=== PATIENT | female | born 1965 | race Caucasian/White ===

== ENCOUNTER 2017-07-28 13:09 | Emergency (ER) | payer OTHER ==
[~2017-07-28] VITALS: Ht 157.5 cm; Wt 86.4 kg
[2017-07-28] MEDS ORDERED: EFFE150C PO (13:18)
[2017-07-28] MEDS ORDERED: EFFE75CA75 PO (13:18)
--- NOTE | 2017-07-28 14:15 | REP ---
RIGHT HAND SERIES: Four views of the right hand performed. No acute fracture or dislocation is seen. Tiny radiodensities representing debris are seen in the soft tissues or on the skin anteriorly at the carpal level. Signed by Santos Mccray MD 07/28/2017 07:15 P
[2017-07-28] MEDS ORDERED: IBUPROFEN 600 MG TAB PO ONE (17:15)
[2017-07-28] MEDS ORDERED: ADACEL/BOOSTRIX VACCINE (DIPHTH/PERTUSS/ACELL/TETANUS)0.5ML SYR (90715) IM ONE (17:15)
[2017-07-28] MEDS ORDERED: CEPHALEXIN 500 MG CAP PO ONE (17:30)
[2017-07-28] MEDS ORDERED: KEFL500C17 PO (18:06)
[2017-07-28 18:33] VITALS: BP 138/87
== END 2017-07-28 18:37 | disposition home or self-care (01) ==
LOC: M ED 13:09
DX: S61.401A Unspecified open wound of right hand, initial encounter (principal); W19.XXXA Unspecified fall, initial encounter; Y92.89 Other specified places as the place of occurrence of the external cause; Y93.89 Activity, other specified; Y99.8 Other external cause status; F41.9 Anxiety disorder, unspecified; F33.9 Major depressive disorder, recurrent, unspecified; Z79.899 Other long term (current) drug therapy

== ENCOUNTER → 2018-06-02 | Outpatient (CLI) | payer OTHER ==
[2018-06-02 12:49] LABS: BASO # 0.1 10^3/uL (0.0-0.2); BASO % 0.8 % (0.0-1.0); EOS # 0.3 10^3/uL (0.0-0.50); EOS % 3.5 % (0.0-3.0); HEMATOCRIT 41.8 % (36.0-47.0); HEMOGLOBIN 13.6 g/dl (12.0-15.5); IMMATURE GRANULOCYTE % 0.1 % (0-3.0); LYMPH # 2.6 10^3/uL (1.5-4.5); LYMPH % 34.2 % (24.0-44.0); MEAN CORPUSCULAR HEMOGLOBIN 29.9 pg (27.0-33.0); MEAN CORPUSCULAR HGB CONC 32.5 g/dl (32.0-36.5); MEAN CORPUSCULAR VOLUME 91.9 fl (80.0-96.0); MONO # 0.5 10^3/uL (0.0-0.8); MONO % 6.1 % (0.0-5.0); NEUTROPHILS # 4.3 10^3/uL (1.8-7.7); NEUTROPHILS % 55.3 % (36.0-66.0); PLATELET COUNT, AUTOMATED 400 10^3/uL (150-450); RED BLOOD COUNT 4.55 10^6/uL (4.00-5.40); RED CELL DISTRIBUTION WIDTH 12.6 % (11.5-14.5); WHITE BLOOD COUNT 7.7 10^3/uL (4.0-10.0)
[2018-06-02 12:53] LABS: APPEARANCE, URINE CLEAR (CLEAR); BACTERIA, URINE AUTO NEGATIVE (NEGATIVE); BILIRUBIN, URINE AUTO NEGATIVE (NEGATIVE); BLOOD, URINE BLOOD NEGATIVE (NEGATIVE); COLOR, URINE STRAW (YELLOW); GLUCOSE, URINE (UA) AUTO NEGATIVE (NEGATIVE); KETONE, URINE AUTO NEGATIVE (NEGATIVE); LEUKOCYTE ESTERASE, URINE AUTO NEGATIVE (NEGATIVE); MUCUS, URINE SMALL (NEGATIVE); NITRITE, URINE AUTO NEGATIVE (NEGATIVE); PROTEIN, URINE AUTO NEGATIVE (NEGATIVE); RBC, URINE AUTO 1 /HPF (0-3); SPECIFIC GRAVITY URINE AUTO 1.006 (1.002-1.035); SQUAMOUS EPITHELIAL CELL UR AU 0 /HPF (0-6); UROBILINOGEN, URINE AUTO 0.2 mg/dL (0.0-2.0); WBC, URINE AUTO 2 /HPF (0-3)
[2018-06-02 13:32] LABS: ALBUMIN 3.7 GM/DL (3.2-5.2); ALBUMIN/GLOBULIN RATIO 1.03 (1.00-1.93); ALKALINE PHOSPHATASE 61 U/L (45-117); ALT/SGPT 24 U/L (12-78); ANION GAP 4 MEQ/L (8-16); AST/SGOT 13 U/L (7-37); BILIRUBIN,TOTAL 0.5 MG/DL (0.2-1.0); BLOOD UREA NITROGEN 14 MG/DL (7-18); CALCIUM LEVEL 8.8 MG/DL (8.5-10.1); CARBON DIOXIDE LEVEL 31 MEQ/L (21-32); CHLORIDE LEVEL 103 MEQ/L (98-107); CHOLESTEROL LEVEL 213 MG/DL (<200); CHOLESTEROL RISK RATIO 4.531 (<5); CREATININE FOR GFR 0.62 MG/DL (0.55-1.30); FREE T4 0.76 NG/DL (0.76-1.46); GLOMERULAR FILTRATION RATE > 60.0 (>51); GLUCOSE, FASTING 87 MG/DL (70-100); HDL CHOLESTEROL 47 MG/DL (>40); LDL CHOLESTEROL 135.4 MG/DL (<100); NON-HDL-C 166 MG/DL; POTASSIUM SERUM 4.1 MEQ/L (3.5-5.1); SODIUM LEVEL 138 MEQ/L (136-145); TOTAL PROTEIN 7.3 GM/DL (6.4-8.2); TRIGLYCERIDES LEVEL 153 MG/DL (<150)
[2018-06-06 14:28] LABS: VITAMIN D 1,25 DIHYDROXY 52.3 pg/mL (19.9-79.3)
== END ==
LOC: M LAB 12:12
DX: E78.5 Hyperlipidemia, unspecified (principal); R53.82 Chronic fatigue, unspecified
CPT/HCPCS: 84443

== ENCOUNTER → 2019-01-29 | Outpatient (CLI) | payer OTHER ==
[~2019-01-29] MED LIST: EFFE150C2 PO; EFFE75CA2 PO; KEFL500C17 PO
[2019-01-29 12:26] LABS: BLOOD UREA NITROGEN 20 MG/DL (7-18); CALCIUM LEVEL 8.7 MG/DL (8.5-10.1); CARBON DIOXIDE LEVEL 30 MEQ/L (21-32); CHLORIDE LEVEL 106 MEQ/L (98-107); CHOLESTEROL LEVEL 230 MG/DL (<200); CREATININE FOR GFR 0.61 MG/DL (0.55-1.30); GLOMERULAR FILTRATION RATE > 60.0 (>51); GLUCOSE, FASTING 91 MG/DL (70-100); HDL CHOLESTEROL 46 MG/DL (>40); LDL CHOLESTEROL 151 MG/DL (<100); NON-HDL-C 184 MG/DL; POTASSIUM SERUM 4.3 MEQ/L (3.5-5.1); SODIUM LEVEL 139 MEQ/L (136-145); TOTAL 25(OH) VITAMIN D 23.2 NG/ML (30.0-100.0); TRIGLYCERIDES LEVEL 166 MG/DL (<150)
== END ==
LOC: M LAB 11:08
PROVIDERS: ATTEND Physician Assistant
DX: E66.9 Obesity, unspecified (principal); E55.9 Vitamin D deficiency, unspecified; F43.23 Adjustment disorder with mixed anxiety and depressed mood

== ENCOUNTER → 2019-04-23 | Outpatient (CLI) | payer OTHER ==
[~2019-04-23] MED LIST changes: +E-Z-GAS II EFFERVESCENT PACKET (SODIUM BICARB./CITRIC ACID/SIMETHICONE) As Ordered ONE; +E-Z-HD 98% w/w 340GM SUSP BTL As Ordered ONE; +E-Z-PAQUE 96% w/w SUSP 176GM BTL As Ordered ONE
--- NOTE | 2019-04-24 16:43 | REP ---
Examination Requested: Esophagram Barium Swallow Reason For Exam/Comment: gastroesophageal reflux disease Esophagram: The procedure was performed TRISTEN Garcia, under the direct supervision of Dr. Piña. The images were reviewed with Dr. Piña. A single PA chest x-ray is submitted as a broadcaster film. The superior mediastinal structures are midline. The heart size is within normal limits. The lungs are clear. Liquid barium and gas producing granules were given in the erect position as well as liquid barium in the prone oblique position, in order to perform a double contrast esophagram examination. Oral and pharyngeal stages of the examination were unremarkable. Esophageal transport is efficient and there is no esophagitis, stricture, or mucosal ring noted. There is no hiatal hernia noted. Gastroesophageal reflux is not visualized throughout the course of the exam. Impression: 1. Unremarkable esophagram. 0.5 minutes of fluoroscopy time was utilized for this procedure. Some fluoroscopic images are performed with last image hold technology. These images require no additional radiation. Reviewed by TRISTEN Dow 04/23/2019 05:02 P Electronically Signed by Edgar Piña MD 04/24/2019 04:34 P
== END ==
LOC: M RAD 10:09
PROVIDERS: ATTEND Physician Assistant Medical
DX: K21.9 Gastro-esophageal reflux disease without esophagitis (principal); R13.10 Dysphagia, unspecified

== ENCOUNTER → 2019-04-23 | Outpatient (CLI) | payer OTHER ==
[~2019-04-23] MED LIST changes: -E-Z-GAS II EFFERVESCENT PACKET (SODIUM BICARB./CITRIC ACID/SIMETHICONE) As Ordered ONE; -E-Z-HD 98% w/w 340GM SUSP BTL As Ordered ONE; -E-Z-PAQUE 96% w/w SUSP 176GM BTL As Ordered ONE
--- NOTE | 2019-05-01 17:26 | REPMRS ---
Patient History The patient states she has not had a clinical breast exam in over a year. Family history of unknown cancer at age 50 or over in maternal aunt. Taking hormonal contraceptives for 5 years. Bilateral breast reduction 1998 Right breast bx 2000-benign The [facility] lifetime risk for breast cancer is 9.0%. Digital Mammo Screening Bilat: April 23, 2019 - Exam #: [id number] Bilateral CC and MLO view(s) were taken. Technologist: Opal Mejia Technologist FINDINGS: There are scattered fibroglandular densities. There has been no change in the appearance of the mammogram from the prior studies. There is a mild amount of residual fibroglandular tissue which is fairly symmetric. There is no interval development of dominant mass, architectural distortion, or clustered microcalcification suggestive of malignancy. Assessment: BI-RADS/ACR category 1 mammogram. Negative Mammogram. Recommendation Routine screening mammogram in 1 year (for women over age 40). This mammogram was interpreted with the aid of an FDA-approved computer-aided dectection system. Electronically Signed By: Santos Mccray MD 05/01/19 [id number]
== END ==
LOC: M RAD 11:18
PROVIDERS: ATTEND Physician Assistant
DX: Z12.31 Encounter for screening mammogram for malignant neoplasm of breast (principal); K21.9 Gastro-esophageal reflux disease without esophagitis; R13.10 Dysphagia, unspecified

== ENCOUNTER 2019-05-11 08:21 | Day surgery (SDC) | payer OTHER ==
[~2019-05-11] VITALS: Ht 157.5 cm; Wt 79.8 kg
[~2019-05-11 08:21] MED LIST changes: +CLOB05OI TOP; +LIDOCAINE 2% INJ 100 MG/5 ML SDV (FOR ANES.) As Ordered ONE; +MIRE1IUD IU; +PROPOFOL 200 MG/20 ML VIAL As Ordered ONE; +PROT0.1O EX
[2019-05-11] MEDS ORDERED: NS 1,000 ML IV ONE (09:00)
[2019-05-11] MEDS ORDERED: PROPOFOL 200 MG/20 ML VIAL As Ordered ONE (09:50)
--- NOTE | 2019-05-11 09:59 | ROOR ---
Patient Name: Nilam Garibay Procedure Date: 05/11/2019 9:14 AM Date of : 1965 Age: 53 Room: [facility] Gender: Female Note Status: Finalized Procedure: Upper GI endoscopy Indications: Dysphagia, Heartburn Providers: Aldo Darling MD Referring MD: Tawanna Campos MD Requesting Provider: Medicines: Monitored Anesthesia Care Complications: No immediate complications. Procedure: Pre-Anesthesia Assessment: - Prior to the procedure, a History and Physical was performed, and patient medications and allergies were reviewed. The patient is competent. The risks and benefits of the procedure and the sedation options and risks were discussed with the patient. All questions were answered and informed consent was obtained. Patient identification and proposed procedure were verified by the physician, the nurse and the anesthesiologist in the procedure room. Mental Status Examination: alert and oriented. Airway Examination: normal oropharyngeal airway and neck mobility. Respiratory Examination: clear to auscultation. CV Examination: normal. Prophylactic Antibiotics: The patient does not require prophylactic antibiotics. Prior Anticoagulants: The patient has taken no previous anticoagulant or antiplatelet agents. ASA Grade Assessment: II - A patient with mild systemic disease. After reviewing the risks and benefits, the patient was deemed in satisfactory condition to undergo the procedure. The anesthesia plan was to use monitored anesthesia care (MAC). Immediately prior to administration of medications, the patient was re-assessed for adequacy to receive sedatives. The heart rate, respiratory rate, oxygen saturations, blood pressure, adequacy of pulmonary ventilation, and response to care were monitored throughout the procedure. The physical status of the patient was re-assessed after the procedure. The Endoscope was introduced through the mouth, and advanced to the second part of duodenum. The upper GI endoscopy was accomplished without difficulty. The patient tolerated the procedure well. Findings: The Z-line was regular and was found in the distal esophagus. Biopsies were obtained from the proximal and distal esophagus with cold forceps for histology of suspected eosinophilic esophagitis. Verification of patient identification for the specimen was done by the physician and nurse using the patient's name, date and medical record number. Estimated blood loss was minimal. Patchy minimal inflammation characterized by erythema and granularity was found in the gastric antrum. Biopsies were taken with a cold forceps for Helicobacter pylori testing. The duodenal bulb and second portion of the duodenum were normal. Impression: - Z-line regular, in the distal esophagus. Biopsied. - Gastritis. Biopsied. - Normal duodenal bulb and second portion of the duodenum. Recommendation: - Patient has a contact number available for emergencies. The signs and symptoms of potential delayed complications were discussed with the patient. Return to normal activities tomorrow. Written discharge instructions were provided to the patient. - Resume previous diet. - Continue present medications. - Follow an antireflux regimen. - Await pathology results. - Telephone GI clinic for pathology results in 2 weeks. - Return to primary care physician. Aldo Darling MD Aldo Darling MD 05/11/2019 9:58:46 AM Electronically signed by Aldo Darling MD Number of Addenda: 0 Note Initiated On: 05/11/2019 9:14 AM Estimated Blood Loss: Estimated blood loss was minimal.
--- NOTE | 2019-05-11 10:04 | ROOR ---
Patient Name: Nilam Garibay Procedure Date: 05/11/2019 9:14 AM Date of : 1965 Age: 53 Room: [facility] Gender: Female Note Status: Finalized Procedure: Colonoscopy Indications: Screening for colorectal malignant neoplasm Providers: Aldo Darling MD Referring MD: Tawanna Campos MD Requesting Provider: Medicines: Monitored Anesthesia Care Complications: No immediate complications. Procedure: Pre-Anesthesia Assessment: - Prior to the procedure, a History and Physical was performed, and patient medications and allergies were reviewed. The patient is competent. The risks and benefits of the procedure and the sedation options and risks were discussed with the patient. All questions were answered and informed consent was obtained. Patient identification and proposed procedure were verified by the physician, the nurse and the anesthesiologist in the procedure room. Mental Status Examination: alert and oriented. Airway Examination: normal oropharyngeal airway and neck mobility. Respiratory Examination: clear to auscultation. CV Examination: normal. Prophylactic Antibiotics: The patient does not require prophylactic antibiotics. Prior Anticoagulants: The patient has taken no previous anticoagulant or antiplatelet agents. ASA Grade Assessment: II - A patient with mild systemic disease. After reviewing the risks and benefits, the patient was deemed in satisfactory condition to undergo the procedure. The anesthesia plan was to use monitored anesthesia care (MAC). Immediately prior to administration of medications, the patient was re-assessed for adequacy to receive sedatives. The heart rate, respiratory rate, oxygen saturations, blood pressure, adequacy of pulmonary ventilation, and response to care were monitored throughout the procedure. The physical status of the patient was re-assessed after the procedure. The Colonoscope was introduced through the anus and advanced to the terminal ileum, with identification of the appendiceal orifice and IC valve. The colonoscopy was performed without difficulty. The patient tolerated the procedure well. The quality of the bowel preparation was good. The terminal ileum, ileocecal valve, appendiceal orifice, and rectum were photographed. Scope insertion time was 3 minutes. Scope withdrawal time was 9 minutes. The total duration of the procedure was 12 minutes. Findings: The perianal and digital rectal examinations were normal. The terminal ileum appeared normal. A 3 mm polyp was found in the descending colon. The polyp was sessile. The polyp was removed with a cold biopsy forceps. Resection and retrieval were complete. Verification of patient identification for the specimen was done by the physician and nurse using the patient's name, date and medical record number. Estimated blood loss was minimal. A few small and large-mouthed diverticula were found in the sigmoid colon. There was no evidence of diverticular bleeding. Non-bleeding external and internal hemorrhoids were found during retroflexion. The hemorrhoids were medium-sized. Impression: - The examined portion of the ileum was normal. - One 3 mm polyp in the descending colon, removed with a cold biopsy forceps. Resected and retrieved. - Moderate diverticulosis in the sigmoid colon. There was no evidence of diverticular bleeding. - Non-bleeding external and internal hemorrhoids. Recommendation: - Patient has a contact number available for emergencies. The signs and symptoms of potential delayed complications were discussed with the patient. Return to normal activities tomorrow. Written discharge instructions were provided to the patient. - High fiber diet. - Continue present medications. - Await pathology results. - Repeat colonoscopy in 5-10 years for surveillance based on pathology results. - Telephone GI clinic for pathology results in 2 weeks. - Return to primary care physician. Aldo Darling MD Aldo Darling MD 05/11/2019 10:03:55 AM Electronically signed by Aldo Darling MD Number of Addenda: 0 Note Initiated On: 05/11/2019 9:14 AM Estimated Blood Loss: Estimated blood loss was minimal.
[2019-05-11 10:20] VITALS: BP 148/79
== END 2019-05-11 10:36 | disposition home or self-care (01) ==
LOC: M OPP 08:21
PROVIDERS: ATTEND Internal Medicine Gastroenterology
DX: Z12.11 Encounter for screening for malignant neoplasm of colon (principal); K64.8 Other hemorrhoids; D12.4 Benign neoplasm of descending colon; K57.30 Diverticulosis of large intestine without perforation or abscess without bleeding; K29.70 Gastritis, unspecified, without bleeding; R13.10 Dysphagia, unspecified; R12 Heartburn; Z79.899 Other long term (current) drug therapy; Z91.048 Other nonmedicinal substance allergy status

== ENCOUNTER → 2019-06-20 | Outpatient (REF) | payer OTHER ==
[~2019-06-20] MED LIST changes: -LIDOCAINE 2% INJ 100 MG/5 ML SDV (FOR ANES.) As Ordered ONE; -PROPOFOL 200 MG/20 ML VIAL As Ordered ONE
[2019-06-20 17:10] LABS: ALBUMIN 3.6 GM/DL (3.2-5.2); ALT/SGPT 22 U/L (12-78); BILIRUBIN,TOTAL 0.5 MG/DL (0.2-1.0); BLOOD UREA NITROGEN 19 MG/DL (7-18); CARBON DIOXIDE LEVEL 30 MEQ/L (21-32); CHLORIDE LEVEL 107 MEQ/L (98-107); CREATININE FOR GFR 0.67 MG/DL (0.55-1.30); GLOMERULAR FILTRATION RATE > 60.0 (>51); GLUCOSE, FASTING 80 MG/DL (70-100); POTASSIUM SERUM 4.5 MEQ/L (3.5-5.1); SODIUM LEVEL 142 MEQ/L (136-145); TOTAL PROTEIN 6.9 GM/DL (6.4-8.2)
[2019-06-20 17:17] LABS: BASO # 0.1 10^3/uL (0.0-0.2); BASO % 0.7 % (0.0-1.0); EOS # 0.2 10^3/uL (0.0-0.50); EOS % 3.2 % (0.0-3.0); HEMATOCRIT 42.1 % (36.0-47.0); HEMOGLOBIN 13.2 g/dl (12.0-15.5); LYMPH # 2.8 10^3/uL (1.5-4.5); LYMPH % 39.2 % (24.0-44.0); MEAN CORPUSCULAR HEMOGLOBIN 29.6 pg (27.0-33.0); MEAN CORPUSCULAR HGB CONC 31.4 g/dl (32.0-36.5); MEAN CORPUSCULAR VOLUME 94.4 fl (80.0-96.0); MONO # 0.4 10^3/uL (0.0-0.8); MONO % 6.1 % (0.0-5.0); NEUTROPHILS # 3.6 10^3/uL (1.8-7.7); NEUTROPHILS % 50.5 % (36.0-66.0); PLATELET COUNT, AUTOMATED 387 10^3/uL (150-450); RED BLOOD COUNT 4.46 10^6/uL (4.00-5.40); WHITE BLOOD COUNT 7.1 10^3/uL (4.0-10.0)
[2019-06-22 10:13] LABS: HEPATITIS B SURFACE ANTIGEN NEGATIVE (NEGATIVE)
[2019-06-22 10:39] LABS: HEPATITIS B CORE ANTIBODY IGM NEGATIVE (NEGATIVE)
[2019-06-22 10:42] LABS: HEPATITIS A ANTIBODY IGM NEGATIVE (NEGATIVE)
== END ==
LOC: M LABNEURO 13:30
PROVIDERS: ATTEND Nurse Practitioner Family
DX: L40.0 Psoriasis vulgaris (principal); M25.50 Pain in unspecified joint; L29.9 Pruritus, unspecified

== ENCOUNTER → 2020-06-23 | Outpatient (CLI) | payer OTHER ==
[2020-06-23 15:52] LABS: BASO # 0.1 10^3/uL (0.0-0.2); BASO % 0.8 % (0.0-1.0); EOS # 0.2 10^3/uL (0.0-0.5); EOS % 2.8 % (0.0-3.0); HEMATOCRIT 45.2 % (36.0-47.0); HEMOGLOBIN 14.3 g/dl (12.0-15.5); LYMPH # 2.8 10^3/uL (1.5-5.0); LYMPH % 35.8 % (24.0-44.0); MEAN CORPUSCULAR HEMOGLOBIN 29.7 pg (27.0-33.0); MEAN CORPUSCULAR HGB CONC 31.6 g/dl (32.0-36.5); MEAN CORPUSCULAR VOLUME 93.8 fl (80.0-96.0); MONO # 0.5 10^3/uL (0.0-0.8); MONO % 6.4 % (0.0-5.0); NEUTROPHILS # 4.2 10^3/uL (1.5-8.5); NEUTROPHILS % 53.9 % (36.0-66.0); PLATELET COUNT, AUTOMATED 404 10^3/uL (150-450); RED BLOOD COUNT 4.82 10^6/uL (4.00-5.40); WHITE BLOOD COUNT 7.8 10^3/uL (4.0-10.0)
[2020-06-23 16:33] LABS: ALBUMIN 3.6 GM/DL (3.2-5.2); ALT/SGPT 38 U/L (12-78); BILIRUBIN,TOTAL 0.4 MG/DL (0.2-1.0); BLOOD UREA NITROGEN 12 MG/DL (7-18); CARBON DIOXIDE LEVEL 31 MEQ/L (21-32); CHLORIDE LEVEL 107 MEQ/L (98-107); CREATININE FOR GFR 0.64 MG/DL (0.55-1.30); GLOMERULAR FILTRATION RATE > 60.0 (>51); GLUCOSE, FASTING 84 MG/DL (70-100); SODIUM LEVEL 139 MEQ/L (136-145); TOTAL 25(OH) VITAMIN D 25.6 NG/ML (30.0-100.0); TOTAL PROTEIN 7.3 GM/DL (6.4-8.2)
== END ==
LOC: M PLALAB 14:08
PROVIDERS: ATTEND Family Medicine
DX: R53.83 Other fatigue (principal); E55.9 Vitamin D deficiency, unspecified

== ENCOUNTER 2020-11-09 18:41 | Emergency (ER) | payer OTHER ==
[~2020-11-09] VITALS: Ht 157.5 cm; Wt 82.9 kg
[2020-11-09 18:42] VITALS: BP 139/88
--- OUTSIDE RECORDS SUMMARY | 2020-11-09 18:48 | CCD ---
Author Author [facility] Address Unknown Phone Unavailable Care Team Providers Care Cancer Registry Coordinator Name Role Phone Hoda Campos MD Unavailable Unavailable Andres, Hoda Stacy MD Unavailable Unavailable Andres, Hoda Stacy MD Unavailable Unavailable Andres, Hoda Stacy MD Unavailable Unavailable Andres, Hoda Stacy MD Unavailable Unavailable Andres, Hoda Stacy MD Unavailable Unavailable Andres, Hoda Stacy MD Unavailable Unavailable Andres, Hoda Stacy MD Unavailable Unavailable Andres, Hoda Stacy MD Unavailable Unavailable Andres, Hoda Stacy MD Unavailable Unavailable Andres, Hoda Stacy MD Unavailable Unavailable Andres, Hoda Stacy MD Unavailable Unavailable Andres, Hoda Stacy MD Unavailable Unavailable Andres, Hoda Stacy MD Unavailable Unavailable Andres, Hoda Stacy MD Unavailable Unavailable Andres, Hoda Stacy MD Unavailable Unavailable Andres, Hoad Stacy MD Unavailable Unavailable Andres, Hoda Stacy MD Unavailable Unavailable Andres, Hoda Stacy MD Unavailable Unavailable Andres, Hoda Stacy MD Unavailable Unavailable Andres, Hoda Stacy MD Unavailable Unavailable Andres, Hoda Stacy MD Unavailable Unavailable Andres, Hoda Stacy MD Unavailable Unavailable Andres, Hoda Stacy MD Unavailable Unavailable Andres, Hoda Stacy MD Unavailable Unavailable Andres, Hoda Stacy MD Unavailable Unavailable Andres, Hoda Stacy MD Unavailable Unavailable Andres, Hoda Stacy MD Unavailable Unavailable Andres, Hoda Stacy MD Unavailable Unavailable Andres, Hoda Stacy MD Unavailable Unavailable Andres, Hdoa Stacy MD Unavailable Unavailable Andres, Hoda Stacy MD Unavailable Unavailable Andres, Hoda Stacy MD Unavailable Unavailable Andres, Hoda tSacy MD Unavailable Unavailable Andres, Hoda Stacy MD Unavailable Unavailable Andres, Hoda Stacy MD Unavailable Unavailable Andres, Hoda Stacy MD Unavailable Unavailable Andres, Hoda Stacy MD Unavailable Unavailable Andres, Hoda Stacy MD Unavailable Unavailable Andres, Hoda Stacy MD Unavailable Unavailable Andres, Hoda Stacy MD Unavailable Unavailable Andres, Hoda Stacy MD Unavailable Unavailable Andres, Hoda Stacy MD Unavailable Unavailable Andres, Hoda Stacy MD Unavailable Unavailable Andres, Hoda Stacy MD Unavailable Unavailable Andres, Hoda Stacy MD Unavailable Unavailable Andres, Hoda Stacy MD Unavailable Unavailable Andres, Hoda Stacy MD Unavailable Unavailable Andres, Hoda Stacy MD Unavailable Unavailable Andres, Hoda Stacy MD Unavailable Unavailable Andres, Hoda Stacy MD Unavailable Unavailable Andres, Hoda Stacy MD Unavailable Unavailable Andres, Hoda Stacy MD Unavailable Unavailable Andres, Hoda Stacy MD Unavailable Unavailable Andres, Hoda Stacy MD Unavailable Unavailable Andres, Hoda Stacy MD Unavailable Unavailable Andres, Hoda Stacy MD Unavailable Unavailable Andres, Hoda Stacy MD Unavailable Unavailable Andres, Hoda Stacy MD Unavailable Unavailable Andres, Hoda Stacy MD Unavailable Unavailable Andres, Hoda Stacy MD Unavailable Unavailable Andres, Hoda Stacy MD Unavailable Unavailable Andres, Hoda Stacy MD Unavailable Unavailable Andres, Hoda Stacy MD Unavailable Unavailable Andres, Hoda Stacy MD Unavailable Unavailable Andres, Hoda Stacy MD Unavailable Unavailable Andres, Hoda Stacy MD Unavailable Unavailable Andres, Hoda Stacy MD Unavailable Unavailable Andres, Hoda Stacy MD Unavailable Unavailable Andres, Hoda Stacy MD Unavailable Unavailable Andres, Hoda Stacy MD Unavailable Unavailable Andres, Hoda Stacy MD Unavailable Unavailable Andres, Hoda Stacy MD Unavailable Unavailable Andres, Hoda Stacy MD Unavailable Unavailable Andres, Hoda Stacy MD Unavailable Unavailable Scordo, M Eva PA Unavailable Unavailable Scordo, M Eva PA Unavailable Unavailable Scordo, M Eva PA Unavailable Unavailable Scordo, M Eva PA Unavailable Unavailable Scordo, M Eva PA Unavailable Unavailable Scordo, M Eva PA Unavailable Unavailable Scordo, M Eva PA Unavailable Unavailable Scordo, M Eva PA Unavailable Unavailable Scordo, M Eva PA Unavailable Unavailable Scordo, M Eva PA Unavailable Unavailable Scordo, M Eva PA Unavailable Unavailable Scordo, M Eva PA Unavailable Unavailable Scordo, M Eva PA Unavailable Unavailable Scordo, M Eva PA Unavailable Unavailable Scordo, M Eva PA Unavailable Unavailable Scordo, M Eva PA Unavailable Unavailable Scordo, M Eva PA Unavailable Unavailable Scordo, M Eva PA Unavailable Unavailable Scordo, M Eva PA Unavailable Unavailable Scordo, M Eva PA Unavailable Unavailable Scordo, M Eva PA Unavailable Unavailable Scordo, M Eva PA Unavailable Unavailable Scordo, M Eva PA Unavailable Unavailable Scordo, M Eva PA Unavailable Unavailable Scordo, M Eva PA Unavailable Unavailable Scordo, M Eva PA Unavailable Unavailable Scordo, M Eva PA Unavailable Unavailable Scordo, M Eva PA Unavailable Unavailable Scordo, M Eva PA Unavailable Unavailable Scordo, M Eva PA Unavailable Unavailable Scordo, M Eva PA Unavailable Unavailable Scordo, M Eva PA Unavailable Unavailable Scordo, M Eva PA Unavailable Unavailable Scordo, M Eva PA Unavailable Unavailable Scordo, M Eva PA Unavailable Unavailable Scordo, M Eva PA Unavailable Unavailable Scordo, M Eva PA Unavailable Unavailable Scordo, M Eva PA Unavailable Unavailable Scordo, M Eva PA Unavailable Unavailable Scordo, M Eva PA Unavailable Unavailable Pleskach, Norma LOT ATTENDANT Unavailable Unavailable Pleskach, Norma LOT ATTENDANT Unavailable Unavailable Pleskach, Norma LOT ATTENDANT Unavailable Unavailable Pleskach, Norma LOT ATTENDANT Unavailable Unavailable Pleskach, Norma LOT ATTENDANT Unavailable Unavailable Pleskach, Norma LOT ATTENDANT Unavailable Unavailable Pleskach, Norma LOT ATTENDANT Unavailable Unavailable Pleskach, Norma LOT ATTENDANT Unavailable Unavailable Pleskach, Norma LOT ATTENDANT Unavailable Unavailable Pleskach, Norma LOT ATTENDANT Unavailable Unavailable Pleskach, Norma LOT ATTENDANT Unavailable Unavailable Pleskach, Norma LOT ATTENDANT Unavailable Unavailable Pleskach, Norma LOT ATTENDANT Unavailable Unavailable Pleskach, Norma LOT ATTENDANT Unavailable Unavailable Pleskach, Norma LOT ATTENDANT Unavailable Unavailable Pleskach, Norma LOT ATTENDANT Unavailable Unavailable Pleskach, Norma LOT ATTENDANT Unavailable Unavailable Pleskach, Norma LOT ATTENDANT Unavailable Unavailable Pleskach, Norma LOT ATTENDANT Unavailable Unavailable Pleskach, Norma LOT ATTENDANT Unavailable Unavailable Pleskach, Norma LOT ATTENDANT Unavailable Unavailable Pleskach, Norma LOT ATTENDANT Unavailable Unavailable Pleskach, Norma LOT ATTENDANT Unavailable Unavailable Pleskach, Norma LOT ATTENDANT Unavailable Unavailable Pleskach, Norma LOT ATTENDANT Unavailable Unavailable Pleskach, Norma LOT ATTENDANT Unavailable Unavailable Pleskach, Norma LOT ATTENDANT Unavailable Unavailable Pleskach, Norma LOT ATTENDANT Unavailable Unavailable Re-disclosure Warning The records that you are about to access may contain information from federally-assisted alcohol or drug abuse programs. If such information is present, then the following federally mandated warning applies: This information has been disclosed to you from records protected by federal confidentiality rules (42 CFR part 2). The federal rules prohibit you from making any further disclosure of this information unless further disclosure is expressly permitted by the written consent of the person to whom it pertains or as otherwise permitted by 42 CFR part 2. A general authorization for the release of medical or other information is NOT sufficient for this purpose. The Federal rules restrict any use of the information to criminally investigate or prosecute any alcohol or drug abuse patient.The records that you are about to access may contain highly sensitive health information, the redisclosure of which is protected by Article 27-F of the [facility] Public Health law. If you continue you may have access to information: Regarding HIV / AIDS; Provided by facilities licensed or operated by the [facility] Office of Mental Health; or Provided by the [facility] Office for People With Developmental Disabilities. If such information is present, then the following [facility] mandated warning applies: This information has been disclosed to you from confidential records which are protected by state law. State law prohibits you from making any further disclosure of this information without the specific written consent of the person to whom it pertains, or as otherwise permitted by law. Any unauthorized further disclosure in violation of state law may result in a fine or custodial sentence or both. A general authorization for the release of medical or other information is NOT sufficient authorization for further disc losure. Family History Family Member Name Family Member Gender Family Member Status Date o f Status Description Data Source(s) Unknown Unknown Problem [facility] ([facility], ) Unknown Male Problem [facility] ([facility] Encounters Encounter Providers Location Date Indications Data Source(s ) Outpatient Attender: Tawanna Campos MD Main Office 06/23/2020 01:00:0 0 PM EDT [facility] ([facility] Outpatient Attender: Norma MILES Main Office 05/12/2020 0 4:15:00 PM EDT [facility] ([facility] Outpatient Attender: Eva BAUMANN Main Office 04/04/2020 09:00:00 AM EDT [facility] ([facility] Medications Medication Brand Name Start Date Product Form Dose Route Admi nistrative Instructions Pharmacy Instructions Status Indications Reaction Description Data Source(s) Lisinopril 10 MG Oral Tablet Lisinopril 09/22/2020 12:00:00 AM EST ORAL active [facility] ([facility] Insurance Providers Payer name Policy type / Coverage type Policy ID Covered constitution party ID Covered constitution party's relationship to douglas Policy Douglas Plan Information [facility] [id number] SP [id number] [employer] AT [facility] Health Maintenance Organization (O) [id number] Self [id number] [facility] [employer] [id number] Self [id number] [facility] [employer] [id number] Self [id number] [facility] Commercial [id number] Self [id number] [facility] [employer]its[employer]me [id number] SP [id number] Results ID Date Data Source [id number] 06/23/2020 02:12:00 PM EDT [facility] ([facility] Name Value Range Interpretation Code Description Data Mary rce(s) Supporting Document(s) Thyrotropin [Units/volume] in Serum or Plasma 2.540 uIU/ML 0.358-3.74 0 [facility] ([facility] Calcidiol [Mass/volume] in Serum or Plasma 25.6 ng/mL 30.0-100.0 [facility] ([facility] ID Date Data Source [id number] 06/23/2020 02:12:00 PM EDT [facility] ([facility] Name Value Range Interpretation Code Description Data Mary rce(s) Supporting Document(s) Glucose, Fasting 84 mg/dL 70-100 [facility] Blood Urea Nitrogen 12 mg/dL 7-18 [facility] ([facility] Creatinine For GFR 0.64 mg/dL 0.55-1.30 [facility] Sodium Level 139 meq/L 136-145 [facility] Glomerular Filtration Rate Laboratory test result [facility] ([facility] <content>Units are mL/min/1.73 m2</content>
<content></content>
<content>Chronic Kidney Disease Staging per NK[facility]:</content>
<content></content>
<content>Stage I & II GFR >=60 Normal to Mildly Decreased</content>
<content>Stage III GFR 30- 59 Moderately Decreased</content>
<content>Stage IV GFR 15-29 Severely Decreased</content>
<content>Stage V GFR <15 Very Little GFR Left</content>
<content>ESRD GFR <15 on DIRECTOR OF PEDIATRIC REHABILITATION</content>
<content></content> Carbon Dioxide Level 31 meq/L 21-32 [facility] Potassium Serum 5.0 meq/L 3.5-5.1 [facility] Chloride Level 107 meq/L 98-107 [facility] Anion Gap 1 meq/L 8-16 [facility] Ast/Sgot 19 U/L 7-37 [facility] Calcium Level 9.0 mg/dL 8.5-10.1 [facility] Bilirubin,Total 0.4 mg/dL 0.2-1.0 [facility] Alt/SGPT 38 U/L 12-78 [facility] Alkaline Phosphatase 67 U/L 45-117 [facility] Total Protein 7.3 GM/DL 6.4-8.2 [facility] Albumin 3.6 GM/DL 3.2-5.2 [facility] Albumin/Globulin Ratio 1.0 1.2-2.2 [facility] ID Date Data Source [id number] 06/23/2020 02:12:00 PM EDT [facility] ([facility] Name Value Range Interpretation Code Description Data Mary rce(s) Supporting Document(s) Hemoglobin 14.3 g/dL 12.0-15.5 [facility] Red Blood Count 4.82 10 4.00-5.40 [facility] White Blood Count 7.8 10 4.0-10.0 [facility] Mean Corpuscular Hemoglobin 29.7 pg 27.0-33.0 [facility] Hematocrit 45.2 % 36.0-47.0 [facility] Mean Corpuscular Volume 93.8 fl 80.0-96.0 M [facility] ([facility] Mean Corpuscular HGB Conc 31.6 g/dL 32.0-36.5 [facility] Platelet Count, Automated 404 10 150-450 [facility] Red Cell Distribution Width 12.7 % 11.5-14.5 [facility] Neutrophils % 53.9 % 36.0-66.0 [facility] [place] % 6.4 % 0.0-5.0 [facility] Lymph % 35.8 % 24.0-44.0 [facility] Eos % 2.8 % 0.0-3.0 [facility] Baso % 0.8 % 0.0-1.0 [facility] Immature Granulocyte % 0.3 % 0-3.0 [facility] [place] # 0.5 10 0.0-0.8 [facility] Neutrophils # 4.2 10 1.5-8.5 [facility] Nucleated Red Blood Cell % 0.0 % 0-0 [facility] ([facility] Lymph # 2.8 10 1.5-5.0 [facility] Eos # 0.2 10 0.0-0.5 [facility] Baso # 0.1 10 0.0-0.2 [facility] Procedure Social History Code Duration Value Status Description Data Source(s ) Smoking 09/22/2020 12:00:00 AM EST - 10/24/1996 12:00:00 AM EST Patient is a former smoker completed Patient is a former smoker [facility] Vital Signs ID Date Data Source UNK Name Value Range Interpretation Code Description Data Source(s) Body mass index (BMI) [Ratio] 35.0 kg/m2 35.0 k g/m2 [facility] [place] body weight 105 [lb_av] 105 [lb_av] [facility] T ([facility] Oxygen saturation in Arterial blood by Pulse oximetry 98 % 98 % [facility] Body weight 189.75 [lb_av] 189.75 [lb_av] [facility] T ([facility] Body height 61.75 [in_i] 61.75 [in_i] [facility] 5'1.75" Respiratory rate 16 /min 16 /min [facility] ( [facility] Body temperature 97.6 [degF] 97.6 [degF] [facility] Heart rate 62 /min 62 /min [facility] Body mass index (BMI) [Ratio] 34.8 kg/m2 34.8 k g/m2 [facility] [place] body weight 105 [lb_av] 105 [lb_av] [facility] T ([facility] Oxygen saturation in Arterial blood by Pulse oximetry 98 % 98 % [facility] Body weight 188.50 [lb_av] 188.50 [lb_av] [facility] T ([facility] Body height 61.75 [in_i] 61.75 [in_i] [facility] 5'1.75" Respiratory rate 15 /min 15 /min [facility] ( [facility] Body temperature 97.8 [degF] 97.8 [degF] [facility] Heart rate 64 /min 64 /min [facility] Diastolic blood pressure 92 mm[Hg] 92 mm[Hg] [facility] recheck Systolic blood pressure 136 mm[Hg] 136 mm[Hg] M [facility] ([facility] recheck Diastolic blood pressure 100 mm[Hg] 100 mm[Hg] [facility] lamberto Systolic blood pressure 146 mm[Hg] 146 mm[Hg] M [facility] ([facility] lamberto Body mass index (BMI) [Ratio] 35.5 kg/m2 35.5 k g/m2 [facility] Oxygen saturation in Arterial blood by Pulse oximetry 98 % 98 % [facility] Body weight 192.56 [lb_av] 192.56 [lb_av] [facility] T ([facility] Body height 61.75 [in_i] 61.75 [in_i] [facility] 5'1.75" Respiratory rate 16 /min 16 /min [facility] ( [facility] Body temperature 97.2 [degF] 97.2 [degF] [facility] Heart rate 72 /min 72 /min [facility] Body mass index (BMI) [Ratio] 34.9 kg/m2 34.9 k g/m2 [facility] Oxygen saturation in Arterial blood by Pulse oximetry 98 % 98 % [facility] Body weight 189.50 [lb_av] 189.50 [lb_av] [facility] T ([facility] Body height 61.75 [in_i] 61.75 [in_i] [facility] 5'1.75" Respiratory rate 16 /min 16 /min [facility] ( [facility] Body temperature 98.7 [degF] 98.7 [degF] [facility] Heart rate 68 /min 68 /min [facility] Diastolic blood pressure 72 mm[Hg] 72 mm[Hg] [facility] Systolic blood pressure 124 mm[Hg] 124 mm[Hg] M [facility]
--- OUTSIDE RECORDS SUMMARY | 2020-11-09 18:48 | CCD | Continuity of Care Document ---
Author Author Nilam SERVIN [place] Organization Unknown Address [address] [place] [address] Phone [phone] Care Team Providers Care Production Line Name Role Phone [facility] Nurse Practitioners - Dermatology AUTM [phone] Margoth Mccartney MD AUTM [phone] Problems Active Problems Provider Date Psoriasis Eva Morris PA-C Onset: 01/10/2019 Obesity Eva Morris PA-C Onset: 01/10/2019 Allergic rhinitis Eva Morris PA-C Onset: 01/10/2019 Obstructive sleep apnea syndrome Eva Morris PA-C Onset: 01/10/2019 Gastroesophageal reflux disease Eva Morris PA-C Onset: 01/10/2019 Adjustment disorder with mixed emotional features Juan Morris PA-C Onset: 01/10/2019 Vitamin D deficiency Eva Morris PA-C Onset: 01/10/2019 Social History Type Date Description Comments Sex Unknown Tobacco Use Start: Unknown Never Used Smokeless Tobacco ETOH Use Rarely consumes alcohol Tobacco Use Start: 10/24/81 End: 10/24/96 Patient is a forme r smoker socially up till 1987, then averaged 1 pack per week Recreational Drug Use Denies Drug Use Smoking Status Reviewed: 09/22/20 Patient is a former smoker so cially up till 1987, then averaged 1 pack per week Exercise Type/Frequency Does not exercise Tattoo/Piercing Pierced ears Sun Exposure Minimum amount of sun exposure Sun Exposure Uses sunscreen Sun Exposure Uses greater than 30 SPF Sun Exposure Does not use tanning beds Sun Exposure Has experienced blistering from sunburns Sun Exposure History of sunburn Seat Belt/Car Seat Always uses seat belt Bike Helmet does not ride Smoke Alarms Yes Smoke Alarms Carbon Monoxide Detector: Yes Allergies, Adverse Reactions, Alerts Description No Known Drug Allergies Medications Active Medications SIG Qnty Indications Ordering Provide r Date Lisinopril 10mg Tablets take one tablet by mouth every morning for blood pressure 90tabs I10 Tawanna Campos M.D. 09/22/2020 Diclofenac Sodium 1% Gel apply 2g size amount to the affected affected area of the foot for pain relief up to 4 times a day 100gm Tawanna Campos M.D. 019 Clotrimazole/Betamethasone Dipropionate 1-0.05% Cream aaa in the under the breast and in the g roin twice a day for two weeks 15gm B35.4 Tawanna Campos M.D. 019 Venlafaxine HCL ER 75mg Tablets ER 24HR 1 by mouth every day 90tabs Tawanna Campos M.D. 12/23 Venlafaxine HCL ER 150mg Caps ER 2 4HR 1 by mouth every day 90caps Tawanna Campos M.D. 019 Tylenol 325mg Capsules one tabs by mouth every 4-6 hour daily as needed for pain Unknown Ibuprofen 200mg Capsules 1-2 every 6-8 hours as needed Unknown Clobetasol Propionate 0.05% Cream apply to effected area as directed as needed Unknown Clobex [place] 0.05% Liquid apply spray twice a day to psoriasis placque for 4 weeks, max 52 sprays per day 125ml Tawanna Campos M.D. Mirena (52 MG) 20mcg/24HR IUD inserted on this date Unknown Immunizations Description No Information Available Vital Signs Date Vital Result Comment 09/22/2020 1:06pm Heart Rate 62 /min Body Temperature 97.6 F Respiratory Rate 16 /min Height 61.75 inches 5'1.75" Weight 189.75 lb O2 % BldC Oximetry 98 % Peak Expiratory Flow Rate 329 Estimated Peak Flow Rate [place] Body Weight 105 lb BMI (Body Mass Index) 35.0 kg/m2 06/23/2020 1:13pm BP Systolic 146 mmHg lamberto BP Diastolic 100 mmHg lamberto BP Systolic Recheck 136 mmHg recheck BP Diastolic Recheck 92 mmHg recheck Heart Rate 64 /min Body Temperature 97.8 F Respiratory Rate 15 /min Height 61.75 inches 5'1.75" Weight 188.50 lb O2 % BldC Oximetry 98 % Peak Expiratory Flow Rate 329 Estimated Peak Flow Rate [place] Body Weight 105 lb BMI (Body Mass Index) 34.8 kg/m2 Results Test Acquired Date Facility Test Result H/L Range Note CBC With Differential 06/23/2020 [facility] [phone] White Blood Count 7.8 10 Normal 4.0-10.0 Red Blood Count 4.82 10 Normal 4.00-5.40 Hemoglobin 14.3 g/dL Normal 12.0-15.5 Hematocrit 45.2 % Normal 36.0-47.0 Mean Corpuscular Volume 93.8 fl Normal 80.0-96.0 Mean Corpuscular Hemoglobin 29.7 pg Normal 27.0-33.0 Mean Corpuscular HGB Conc 31.6 g/dL Low 32.0-36.5 Red Cell Distribution Width 12.7 % Normal 11.5-14.5 Platelet Count, Automated 404 10 Normal 150-450 Neutrophils % 53.9 % Normal 36.0-66.0 Lymph % 35.8 % Normal 24.0-44.0 Weld % 6.4 % High 0.0-5.0 Eos % 2.8 % Normal 0.0-3.0 Baso % 0.8 % Normal 0.0-1.0 Immature Granulocyte % 0.3 % Normal 0-3.0 Nucleated Red Blood Cell % 0.0 % Normal 0-0 Neutrophils # 4.2 10 Normal 1.5-8.5 Lymph # 2.8 10 Normal 1.5-5.0 Weld # 0.5 10 Normal 0.0-0.8 Eos # 0.2 10 Normal 0.0-0.5 Baso # 0.1 10 Normal 0.0-0.2 Comprehensive Metabolic Profil 06/23/2020 [facility] [phone] Glucose, Fasting 84 mg/dL Normal 70-100 Blood Urea Nitrogen 12 mg/dL Normal 7-18 Creatinine For GFR 0.64 mg/dL Normal 0.55-1.30 Glomerular Filtration Rate > 60.0 Normal >51 1 Sodium Level 139 mEq/L Normal 136-145 Potassium Serum 5.0 mEq/L Normal 3.5-5.1 Chloride Level 107 mEq/L Normal 98-107 Carbon Dioxide Level 31 mEq/L Normal 21-32 Anion Gap 1 mEq/L Low 8-16 Calcium Level 9.0 mg/dL Normal 8.5-10.1 Ast/Sgot 19 U/L Normal 7-37 Alt/SGPT 38 U/L Normal 12-78 Alkaline Phosphatase 67 U/L Normal 45-117 Bilirubin,Total 0.4 mg/dL Normal 0.2-1.0 Total Protein 7.3 GM/DL Normal 6.4-8.2 Albumin 3.6 GM/DL Normal 3.2-5.2 Albumin/Globulin Ratio 1.0 Low 1.2-2.2 Laboratory test finding 06/23/2020 [facility] [phone] Thyroid Stimulating Hormone 2.540 uIU/ML Normal 0. 358-3.740 Total 25(Oh) Vitamin D 25.6 NG/ML Low 30.0-100.0 1 Units are mL/min/1.73 m2 Chronic Kidney Disease Staging per NKF: Stage I & II GFR >=60 Normal to Mildly Decreased Stage III GFR 30-59 Moderately Decreased Stage IV GFR 15-29 Severely Decreased Stage V GFR <15 Very Little GFR Left ESRD GFR <15 on AUTOMATION TECHNICIAN Procedures Date Code Description Status 04/23/2019 [id number] Mammogram Completed Medical Devices Description No Information Available Encounters Type Date Location Provider Dx Diagnosis Office Visit 06/23/2020 1:00p Main Office Tawanna Campos M.D. R 53.83 Other fatigue K21.9 Gastro-esophageal reflux dis ease without esophagitis F43.23 Adjustment disorder with mix ed anxiety and depressed mood L40.0 Psoriasis vulgaris E55.9 Vitamin D deficiency, unspec ified R03.0 Elevated blood-pressure read ing, w/o diagnosis of htn Z97.5 Presence of (intrauterine) c ontraceptive device Office Visit 05/12/2020 4:15p Main Office Norma Benitez FNP R51 Headache Office Visit 04/04/2020 9:00a Main Office Eva Morris PA-C Z00.0 0 Encntr for general adult medical exam w/o abnormal findings K21.9 Gastro-esophageal reflux dis ease without esophagitis F43.23 Adjustment disorder with mix ed anxiety and depressed mood L40.0 Psoriasis vulgaris J30.9 Allergic rhinitis, unspecifi ed E55.9 Vitamin D deficiency, unspec ified G47.33 Obstructive sleep apnea (kenzie lt) (pediatric) E78.2 Mixed hyperlipidemia Assessments Date Code Description Provider 09/22/2020 I10 Essential (primary) hypertension Olga Servin PA 09/22/2020 E78.2 Mixed hyperlipidemia Olga Servin PA 06/23/2020 R53.83 Fatigue Tawanna Campos M.D. 06/23/2020 K21.9 Gastro-esophageal reflux disease without esophagitis Tawanna Campos M.D. 06/23/2020 F43.23 Adjustment disorder with mixed a nxiety and depressed mood Tawanna Campos M.D. 06/23/2020 L40.0 Psoriasis vulgaris J Luis Campos M.D. 06/23/2020 E55.9 Vitamin D deficiency, unspecifie d Tawanna Campos M.D. 06/23/2020 R03.0 Elevated blood-press ure reading without diagnosis of hypertension Tawanna Campos M.D. 06/23/2020 Z97.5 IUD contraception Sandrita Campos M.D. 05/12/2020 R51 Headache Norma Benitez FNP 04/04/2020 Z00.00 Encounter for general adult medi cole examination without abno Eva Morris PA-C 04/04/2020 K21.9 Gastro-esophageal reflux disease without esophagitis Eva Morris PA-C 04/04/2020 F43.23 Adjustment disorder with mixed a nxiety and depressed mood Eva Morris PA-C 04/04/2020 L40.0 Psoriasis vulgaris Heladio Morris PA-C 04/04/2020 J30.9 Allergic rhinitis, unspecified S Eva wright PA-C 04/04/2020 E55.9 Vitamin D deficiency, unspecifie d Eva Morris PA-C 04/04/2020 G47.33 Obstructive sleep apnea (adult) (pediatric) Eva Morris PA-C 04/04/2020 E78.2 Mixed hyperlipidemia Tara Morris PA-Erick Plan of Treatment No Information Available Functional Status Functional Condition Comment Date Status Bifocal glasses Active Independent with all ADL's Activ e Cpap Machine Active Independent with all IADL's Acti ve entrance guard Active custom orthotics Active Mental Status Mental Condition Comment Date Status None Active Can Understand Information Activ e Referrals Refer to Reason for Referral Status Appt Margoth Santillan MD psoriatic arthritis, pt would like to ge t established Patient Declined [facility] [place] [address] [phone] [facility] Nurse Practitioners needs new referral for ps oriasis, would like to see Renetta Yuan Closed 04/23/2020 [id number] [facility] [address], [address] [place] [address] [phone]
[2020-11-09] MEDS ORDERED: FLUORESCEIN OPHTH 1 MG STRIP OS ONE (19:15)
--- OUTSIDE RECORDS SUMMARY | 2020-11-09 19:25 | CCD ---
Author Author [facility] Organization [facility] Address Unknown Phone Unavailable Care Team Providers Care Stock Shipper Name Role Phone Hoda Campos MD Unavailable Unavailable Andres, Hoda Stacy MD Unavailable Unavailable Andres, Hoda Stacy MD Unavailable Unavailable Andres, Hoda Stacy MD Unavailable Unavailable Andres, Hoda Stacy MD Unavailable Unavailable Andres, Hoda Stacy MD Unavailable Unavailable Andres, Hoda Stacy MD Unavailable Unavailable Andres, Hoda Stacy MD Unavailable Unavailable Andres, Hoda Stacy MD Unavailable Unavailable Hoda Campos MD Unavailable Unavailable Hoda Campos MD Unavailable Unavailable Hoda Campos MD Unavailable Unavailable Andres, Hoda Stacy MD Unavailable Unavailable Andres, Hoda Stacy MD Unavailable Unavailable AndresHoda MD Unavailable Unavailable AndresHoda MD Unavailable Unavailable AndresHoda MD Unavailable Unavailable Hoda Campos MD Unavailable Unavailable Hoda Campos MD Unavailable Unavailable Hoda Campos MD Unavailable Unavailable Hoda Campos MD Unavailable Unavailable Andres, Hoda Stacy MD Unavailable Unavailable Andres, Hoda Stacy MD Unavailable Unavailable Andres, Hoda Stacy MD Unavailable Unavailable Andres, Hoda Stacy MD Unavailable Unavailable Hoda Campos MD Unavailable Unavailable Hoda Campos MD Unavailable Unavailable Andres, Hoda Stacy MD Unavailable Unavailable Andres, Hoda Stacy MD Unavailable Unavailable Andres, Hoda Stacy MD Unavailable Unavailable Andres, Hoda Stacy MD Unavailable Unavailable Hoda Campos MD Unavailable Unavailable AndresHoda MD Unavailable Unavailable Andres, Hoda Stacy MD [...] Hoda Stacy MD Unavailable Unavailable Andres, Hoda Stcay MD Unavailable Unavailable Andres, Hoda Stacy MD [...] M Eva PA Unavailable Unavailable Scordo, M Eav PA Unavailable Unavailable Scordo, M Eva PA [...] M Eva PA Unavailable Unavailable Pleskach, Norma PROGRAM AND RESEARCH COORDINATOR Unavailable Unavailable Pleskach, Norma PROGRAM AND RESEARCH COORDINATOR Unavailable Unavailable Pleskach, Norma PROGRAM AND RESEARCH COORDINATOR Unavailable Unavailable Pleskach, Norma PROGRAM AND RESEARCH COORDINATOR Unavailable Unavailable Pleskach, Norma PROGRAM AND RESEARCH COORDINATOR Unavailable Unavailable Pleskach, Norma PROGRAM AND RESEARCH COORDINATOR Unavailable Unavailable Pleskach, Norma PROGRAM AND RESEARCH COORDINATOR Unavailable Unavailable Pleskach, Norma PROGRAM AND RESEARCH COORDINATOR Unavailable Unavailable Pleskach, Norma PROGRAM AND RESEARCH COORDINATOR Unavailable Unavailable Pleskach, Norma PROGRAM AND RESEARCH COORDINATOR Unavailable Unavailable Pleskach, Norma PROGRAM AND RESEARCH COORDINATOR Unavailable Unavailable Pleskach, Norma PROGRAM AND RESEARCH COORDINATOR Unavailable Unavailable Pleskach, Norma PROGRAM AND RESEARCH COORDINATOR Unavailable Unavailable Pleskach, Norma PROGRAM AND RESEARCH COORDINATOR Unavailable Unavailable Pleskach, Norma PROGRAM AND RESEARCH COORDINATOR Unavailable Unavailable Pleskach, Norma PROGRAM AND RESEARCH COORDINATOR Unavailable Unavailable Pleskach, Norma PROGRAM AND RESEARCH COORDINATOR Unavailable Unavailable Pleskach, Norma PROGRAM AND RESEARCH COORDINATOR Unavailable Unavailable Pleskach, Norma PROGRAM AND RESEARCH COORDINATOR Unavailable Unavailable Pleskach, Norma PROGRAM AND RESEARCH COORDINATOR Unavailable Unavailable Pleskach, Norma PROGRAM AND RESEARCH COORDINATOR Unavailable Unavailable Pleskach, Norma PROGRAM AND RESEARCH COORDINATOR Unavailable Unavailable Pleskach, Norma PROGRAM AND RESEARCH COORDINATOR Unavailable Unavailable Pleskach, Norma PROGRAM AND RESEARCH COORDINATOR Unavailable Unavailable Pleskach, Norma PROGRAM AND RESEARCH COORDINATOR Unavailable Unavailable Pleskach, Norma PROGRAM AND RESEARCH COORDINATOR Unavailable Unavailable Pleskach, Norma PROGRAM AND RESEARCH COORDINATOR Unavailable Unavailable Pleskach, Norma PROGRAM AND RESEARCH COORDINATOR Unavailable Unavailable Re-disclosure Warning The records that [...] is protected by Article 27-F of the [facility] Public Health law. If you continue you may have access to information: Regarding HIV / AIDS; Provided by facilities licensed or operated by the [facility] Office of Mental Health; or Provided by the [facility] Office for People With Developmental Disabilities. If such information is present, then the following [facility] mandated warning applies: This information has been [...] law may result in a fine or correction sentence or both. A general authorization for the release of medical or other information is NOT sufficient authorization for further disc losure. Family History Family Member Name Family Member Gender Family Member Status Date o f Status Description Data Source(s) Unknown Unknown Problem [facility] ([facility], ) Unknown Male Problem [facility] ([facility] Encounters Encounter Providers Location Date Indications Data Source(s ) Outpatient Attender: Tawanna Campos MD Main Office 06/23/2020 01:00:0 0 PM EDT [facility] ([facility] Outpatient Attender: Norma Benitez [facility] Main Office 05/12/2020 0 4:15:00 PM EDT [facility] ([facility] Outpatient Attender: Eva BAUMANN Main Office 04/04/2020 09:00:00 AM EDT [facility] ([facility] Medications Medication Brand Name Start Date Product Form Dose Route Admi nistrative Instructions Pharmacy Instructions Status Indications Reaction Description Data Source(s) Lisinopril 10 MG Oral Tablet Lisinopril 09/22/2020 12:00:00 AM EST ORAL active [facility] ([facility] Insurance Providers Payer name Policy type / Coverage type Policy ID Covered alliance party ID Covered alliance party's relationship to douglas Policy [place] Plan Information [facility] [id number] SP [id number] [facility] [id number] SP [id number] [facility] Health Maintenance Organization (O) [id number] Self [id number] [facility] Kigo [id number] Self 00 [id number] [facility] Commercial [id number] Self 00 [id number] [facility] Commercial [id number] Self 00 [id number] [facility] [id number] SP [id number] Results ID Date Data Source [id number] 06/23/2020 02:12:00 PM EDT [facility] ([facility] Name Value Range Interpretation Code Description Data Mary rce(s) Supporting Document(s) Thyrotropin [Units/volume] in Serum or Plasma 2.540 uIU/ML 0.358-3.74 0 [facility] ([facility] Calcidiol [Mass/volume] in Serum or Plasma 25.6 ng/mL 30.0-100.0 [facility] ID Date Data Source [id number] 06/23/2020 02:12:00 PM EDT [facility] ([facility] [...] Little GFR Left</content>
<content>ESRD GFR <15 on LOST CHARGE CARD CLERK</content>
<content></content> Carbon Dioxide Level 31 meq/L 21-32 [...] [facility] ID Date Data Source [id number] 06/23/2020 02:12:00 PM EDT [facility] ([facility] [...] % 36.0-66.0 [facility] [place] % 6.4 % 0.0-5.0 [facility] Lymph % 35.8 % 24.0-44.0 [facility] Eos % 2.8 % 0.0-3.0 [facility] Baso % 0.8 % 0.0-1.0 [facility] Immature Granulocyte % 0.3 % 0-3.0 [facility] [place] # 0.5 10 0.0-0.8 [facility] ([facility]awanna swain [...] k g/m2 [facility] [place] body weight 105 [lb_av] 105 [lb_av] [facility] [...] temperature 97.6 [degF] 97.6 [degF] [facility] Heart rate 62 /min 62 /min [facility] Body mass index (BMI) [Ratio] 34.8 kg/m2 34.8 k g/m2 [facility] [place] body weight 105 [lb_av] 105 [lb_av] MED[facility] [...] [facility] Body weight 189.50 [lb_av] [...]
== END 2020-11-09 19:47 | disposition home or self-care (01) ==
LOC: M ED 18:41
DX: T26.02XA Burn of left eyelid and periocular area, initial encounter (principal); X12.XXXA Contact with other hot fluids, initial encounter; Y99.0 Civilian activity done for income or pay; Y92.9 Unspecified place or not applicable; Y93.9 Activity, unspecified; Z79.899 Other long term (current) drug therapy

== ENCOUNTER → 2021-01-16 | Outpatient (CLI) | payer OTHER ==
--- NOTE | 2021-01-16 17:30 | REP ---
INDICATION: Psoriasis vulgaris. COMPARISON: None. TECHNIQUE: PA/Lateral FINDINGS: Lungs: Clear, no infiltrate. Heart: Normal in size. Mediastinum: Mediastinal silhouette unremarkable. Pleural angles: Unremarkable.. Bones and soft tissues: There are degenerative changes of the spine without compression deformity. IMPRESSION: No acute pulmonary disease. <Electronically signed by Santos Mccray > 01/16/21 [id number]
== END ==
LOC: M WUC 15:52
PROVIDERS: ATTEND Nurse Practitioner
DX: L40.0 Psoriasis vulgaris (principal)

== ENCOUNTER → 2021-03-13 | Outpatient (REF) | payer OTHER | LOC: M LAB REF 13:04 | PROVIDERS: ATTEND Family Medicine | DX: Z01.419 Encounter for gynecological examination (general) (routine) without abnormal findings (principal); Z12.4 Encounter for screening for malignant neoplasm of cervix ==

== ENCOUNTER 2021-04-06 19:14 | Emergency (ER) | payer OTHER ==
[~2021-04-06] VITALS: Ht 157.5 cm; Wt 82.7 kg
[2021-04-06 19:14] VITALS: BP 165/80
== END 2021-04-06 20:17 | disposition left against medical advice (07) ==
LOC: M ED 20:12
DX: Z53.21 Procedure and treatment not carried out due to patient leaving prior to being seen by health care provider (principal)

== ENCOUNTER → 2021-04-07 | Outpatient (CLI) | payer OTHER ==
[2021-04-07 14:30] LABS: BASO # 0.1 10^3/uL (0.0-0.2); BASO % 0.9 % (0.0-1.0); EOS # 0.2 10^3/uL (0.0-0.5); HEMOGLOBIN 13.9 g/dl (12.0-15.5); LYMPH # 2.4 10^3/uL (1.5-5.0); LYMPH % 30.2 % (24.0-44.0); MEAN CORPUSCULAR HEMOGLOBIN 29.6 pg (27.0-33.0); MEAN CORPUSCULAR HGB CONC 31.6 g/dl (32.0-36.5); MEAN CORPUSCULAR VOLUME 93.8 fl (80.0-96.0); MONO # 0.7 10^3/uL (0.0-0.8); MONO % 9.1 % (2.0-8.0); NEUTROPHILS # 4.5 10^3/uL (1.5-8.5); NEUTROPHILS % 56.4 % (36.0-66.0); PLATELET COUNT, AUTOMATED 402 10^3/uL (150-450); RED BLOOD COUNT 4.69 10^6/uL (4.00-5.40); WHITE BLOOD COUNT 7.9 10^3/uL (4.0-10.0)
--- NOTE | 2021-04-08 03:17 | REPPI ---
INDICATION: M79.675 PAIN IN LEFT TOE COMPARISON: None. TECHNIQUE: AP, lateral, bilateral oblique views left foot. FINDINGS: Periarticular sclerosis, joint space narrowing, marginal osteophytosis and small periarticular calcifications noted at the 1st metatarsophalangeal (MTP) joint. Remainder of the examination is essentially age-appropriate. No evidence for acute fracture or dislocation. IMPRESSION: Moderate arthritic changes at the 1st MTP joint.. <Electronically signed by Edgar Piña > 04/08/21 [id number]
== END ==
LOC: M PLAIMG 11:15
PROVIDERS: ATTEND Nurse Practitioner Family
DX: M79.675 Pain in left toe(s) (principal); M19.90 Unspecified osteoarthritis, unspecified site

== ENCOUNTER → 2021-04-29 | Outpatient (CLI) | payer OTHER ==
--- NOTE | 2021-04-29 10:19 | REP ---
INDICATION: CERVICALGIA. COMPARISON: None. TECHNIQUE: Eight views cervical spine. FINDINGS: C7 is not visualized. The remaining cervical vertebral bodies demonstrate no fracture. There is approximately 2 mm of retrolisthesis of C3 on C4. There is no prevertebral soft tissue swelling. Mild spurring of C3 and C4 with mild intervening disc space narrowing. There is slight disc space narrowing at C4-5 and C5-6. There is no radiographic evidence of significant neural foraminal narrowing. IMPRESSION: Degenerative changes as discussed above. <Electronically signed by Santos Mccray > 04/29/21 [id number]
== END ==
LOC: M WUC 08:47
PROVIDERS: ATTEND Family Medicine
DX: M54.2 Cervicalgia (principal)

== ENCOUNTER 2021-06-26 18:02 | Inpatient (IN) | payer OTHER ==
[~2021-06-26] VITALS: Ht 157.5 cm; Wt 80.4 kg
[2021-06-26] MEDS ORDERED: tylenol PO (18:53)
[2021-06-26 19:25] LABS: VENOUS BASE EXCESS 3.5 (-2.0-2.0); VENOUS HCO3 30.5 MEQ/L (23.0-27.0); VENOUS O2 SATURATION 48.3 % (60.0-80.0); VENOUS PARTIAL PRESSURE CO2 55.8 mmHg (38.0-50.0); VENOUS PARTIAL PRESSURE O2 28.7 mmHg (30.0-50.0); VENOUS PH 7.355 UNITS (7.330-7.430); VENOUS STANDARD HCO3 26.2 MEQ/L; VENOUS TOTAL CO2 32.2 MEQ/L (24.0-28.0)
[2021-06-26 19:26] LABS: BASO % 0.3 % (0.0-1.0); HEMATOCRIT 42.8 % (36.0-47.0); HEMOGLOBIN 13.8 g/dl (12.0-15.5); LYMPH # 0.8 10^3/uL (1.5-5.0); LYMPH % 13.2 % (24.0-44.0); MEAN CORPUSCULAR HEMOGLOBIN 29.2 pg (27.0-33.0); MEAN CORPUSCULAR HGB CONC 32.2 g/dl (32.0-36.5); MEAN CORPUSCULAR VOLUME 90.7 fl (80.0-96.0); MONO # 0.5 10^3/uL (0.0-0.8); MONO % 8.5 % (2.0-8.0); NEUTROPHILS # 4.8 10^3/uL (1.5-8.5); NEUTROPHILS % 77.5 % (36.0-66.0); PLATELET COUNT, AUTOMATED 310 10^3/uL (150-450); RED BLOOD COUNT 4.72 10^6/uL (4.00-5.40); WHITE BLOOD COUNT 6.2 10^3/uL (4.0-10.0)
[2021-06-26 19:41] LABS: ALBUMIN 2.6 GM/DL (3.2-5.2); ALT/SGPT 37 U/L (12-78); BILIRUBIN,DIRECT 0.2 MG/DL (0.0-0.2); BILIRUBIN,TOTAL 0.4 MG/DL (0.2-1.0); BLOOD UREA NITROGEN 12 MG/DL (7-18); CALCIUM LEVEL 8.4 MG/DL (8.5-10.1); CARBON DIOXIDE LEVEL 30 MEQ/L (21-32); CHLORIDE LEVEL 101 MEQ/L (98-107); CK-MB VALUE MASS 1.2 NG/ML (<3.6); CPK CREATINE PHOSPHOKINASE 149 U/L (26-192); CREATININE FOR GFR 0.63 MG/DL (0.55-1.30); GLOMERULAR FILTRATION RATE > 60.0 (>51); GLUCOSE, FASTING 131 MG/DL (70-100); MB/CK RELATIVE INDEX 0.81 (< OR =4); NT-PRO BNP 156 PG/ML (<125); POTASSIUM SERUM 3.6 MEQ/L (3.5-5.1); SODIUM LEVEL 138 MEQ/L (136-145); THYROXINE (T4) 9.4 UG/DL (4.5-12.0); TOTAL PROTEIN 6.9 GM/DL (6.4-8.2); TROPONIN I < 0.02 NG/ML (< 0.10)
--- NOTE | 2021-06-26 19:45 | REP ---
INDICATION: DYSPNEA/COUGH. COMPARISON: 01/16/2021. TECHNIQUE: Single portable AP view of the chest was performed. FINDINGS: There are relatively mild diffuse mixed interstitial and alveolar infiltrates bilaterally. Mild cardiomegaly. The mediastinal silhouette appears unremarkable. The visualized osseous structures appear intact. IMPRESSION: Mild cardiomegaly with diffuse mixed mild interstitial and alveolar infiltrates. <Electronically signed by Santos Mccray > 06/26/211940
[2021-06-26] MEDS ORDERED: ISOVUE-370 76% 100ML VIAL As Ordered ONE (22:47)
[2021-06-26] MEDS ORDERED: methylPREDNISolone 125MG 2ML VIAL IV ONE (23:45)
--- NOTE | 2021-06-26 23:51 | REPVR ---
PROCEDURE INFORMATION: Exam: CTA Chest With Contrast Exam date and time: 06/26/2021 10:54 PM Age: 55 years old Clinical indication: Other: Covid, R/O pe TECHNIQUE: Imaging protocol: Computed tomographic angiography of the chest with contrast. 3D rendering (Not supervised by radiologist): MIP and/or 3D reconstructed images were created by the technologist. Radiation optimization: All CT scans at this facility use at least one of these dose optimization techniques: automated exposure control; mA and/or kV adjustment per patient size (includes targeted exams where dose is matched to clinical indication); or iterative reconstruction. Contrast material: ISOVUE 370; Contrast volume: 75 ml; Contrast route: INTRAVENOUS (IV); COMPARISON: CR PORTABLE CHEST X-RAY 06/26/2021 7:26 PM FINDINGS: Pulmonary arteries: Normal. No pulmonary emboli. Aorta: Unremarkable. No aortic aneurysm. No aortic dissection. Lungs: Extensive ground-glass opacifications in bilateral lungs consistent with patient's history of COVID-19 infection. Pleural spaces: Unremarkable. No pneumothorax. No pleural effusion. Heart: Unremarkable. No cardiomegaly. No pericardial effusion. Lymph nodes: Unremarkable. No enlarged lymph nodes. Bones/joints: Unremarkable. No acute fracture. Soft tissues: Unremarkable. IMPRESSION: No pulmonary embolism. Extensive ground-glass opacifications in bilateral lungs consistent with patient's history of COVID-19 infection. Electronically signed by: Omar Sierra On 06/26/2021 23:51:03 PM
[2021-06-27] VITALS (8 sets, daily range): BP systolic 99–127; BP diastolic 59–71; O2SAT 94
[2021-06-27] MEDS ORDERED: VENL75CA2 PO (00:06)
[2021-06-27] MEDS ORDERED: HOME MED LIST COMPLETE! XX SCH ×2 (00:10→08:05)
[2021-06-27 02:47] LABS: C REACTIVE PROTEIN QUANTITATIV 8.77 MG/DL (0.00-0.30); MAGNESIUM LEVEL 2.2 MG/DL (1.8-2.4)
[2021-06-27] MEDS: cefTRIAXone SOD 1 GM in D5W MINI-BAG PLUS 50 ML IV SCH (02:48)
[2021-06-27] MEDS ORDERED: REMDESIVIR 200 MG in NS 250 ML IV ONE (03:00)
--- NOTE | 2021-06-27 03:14 | HPEPDOC ---
General Date of Admission Jun 27, 2021 at 01:20 Date of Service: Jun 27, 2021 Chief Complaint The patient is a 55-year-old female admitted with a reason for visit of Covid, Hypoxia. History of Present Illness Mrs. Garibay is a 55 year old female with depression who is here with dyspnea and cough and found to be COVID positive. Patient is not COVID vaccinated. About 1 month ago, patient travelled to [place] and [place]. Otherwise, patient had interacted with daughter and son in law recently and both have tested positive for COVID 06/15/21. Then, 1 week ago, she started to feel short of breath. She had nausea without vomiting and started to have more lethargy. Food does not taste as good as before. Symptoms progressively worsened and she had fever/chills and a cough that is sometimes productive. She came to the ED with her to be evaluated. At room air, she desaturated down to 85%. Patient initially required only 2L of NC. Otherwise patient is afebrile. Lungs sounds are coarse. CT angio chest is negative for PE but does demonstrate extensive groundglass opacifications in bilateral lungs consistent with Covid infection. Otherwise, her is also Covid positive, but he is not hypoxic. Patient will be admitted for Covid pneumonia and hypoxia. Home Medications Scheduled Venlafaxine HCl (Effexor Xr) 150 Mg Cap, 150 MG PO DAILY, (Reported) take with venlafaxine er 75mg cap daily verified with patient Venlafaxine HCl (Venlafaxine HCl ER) 75 Mg Cap.er.24h, 75 MG PO DAILY, (Re ported) take with venlafaxine xr 150mg cap daily verified with patient Miscellaneous Medications Levonorgestrel (Mirena) 1 Each Iud, 20 MCG IU, (Reported) verified with patient Allergies Coded Allergies: nylon (Verified Allergy, Intermediate, rash, 05/10/19) Past Medical History Medical History 1. Depression Surgical History 1. Breast reduction 2. Carpal tunnel Family History Father: when patient was young from heart disease Mother: Diabetes mellitus Social History * Smoker: former Smoker Alcohol: rarely Drugs: denies A-FIB/CHADSVASC A-FIB History Current/History of A-Fib/PAF?: No Review of Systems Constitutional: Reports: Chills, Fever, Malaise, Fatigue Eyes: Denies: Vision change ENT: Reports: Other Symptoms (Loss of taste) Skin: Denies: Rash Pulmonary: Reports: Dyspnea, Cough (Sometimes productive) Cardiovascular: Denies: Chest Pain Gastrointestinal: Reports: Nausea; Denies: Vomiting Genitourinary: Denies: Dysuria Hematologic: Denies: Bruising Neurological: Reports: Numbness (Chronic from carpal tunnel) Psych: Reports: Anxiety, Depression Physical Examination General Exam: Positive: Alert, Cooperative Eye Exam: Positive: EOMI; Negative: Sclera icteric ENT Exam: Positive: Atraumatic Neck Exam: Positive: Supple Chest Exam: Positive: Rhonchi Heart Exam: Positive: Rate Normal, Regular Rhythm Abdomen Exam: Positive: Normal bowel sounds, Soft; Negative: Tenderness Neuro Exam: Positive: Normal Speech, Cranial Nerves 3-12 NL Psych Exam: Positive: Mental status NL, Mood NL Vital Signs Vital Signs Date Time Temp Pulse Resp B/P (MAP) Pulse Ox O2 Delivery O2 Flow Rate FiO2 06/27/21 02:37 97.3 59 18 111/70 (84) 91 Nasal Cannula 4.0 Laboratory Data Labs 24H Laboratory Tests 2 06/26/21 18:12: Immature Granulocyte % (Auto) 0.5, Neutrophils (%) (Auto) 77.5H, Lymphocytes (%) (Auto) 13.2L, Monocytes (%) (Auto) 8.5H, Eosinophils (%) (Auto) 0.0, Basophils (%) (Auto) 0.3, Neutrophils # (Auto) 4.8, Lymphocytes # (Auto) 0.8L, Monocytes # (Auto) 0.5, Eosinophils # (Auto) 0.0, Basophils # (Auto) 0.0, Nucleated Red Blood Cells % (auto) 0.0, Blood Gas Bicarbonate Standard 26.2, Venous Blood pH 7.355, Venous Blood Partial Pressure CO2 55.8H, Venous Blood Partial Pressure O2 28.7L, Venous Blood Total Carbon Dioxide 32.2H, Venous Blood HCO3 30.5H, Venous Blood Oxygen Saturation 48.3L, Venous Blood Base Excess 3.5H, Anion Gap 7L, Glomerular Filtration Rate > 60.0, Lactic Acid Level 1.1, Calcium Level 8.4L, Total Bilirubin 0.4, Direct Bilirubin 0.2, Aspartate Amino Transf (AST/SGOT) 36, Alanine Aminotransferase (ALT/SGPT) 37, Alkaline Phosphatase 54, Total Creatine Kinase 149, Creatine Kinase MB 1.2, Creatine Kinase MB Relative Index 0.81, Troponin I < 0.02, HM-Rsn-X-Type Natriuretic Peptide 156H, Total Protein 6.9, Albumin 2.6L, Albumin/Globulin Ratio 0.6L, Thyroid Stimulating Hormone (TSH) 1.470, Thyroxine (T4) 9.4 06/27/21 02:07: Magnesium Level 2.2, Ferritin 861H, Lactate Dehydrogenase 336H, C-Reactive Protein, Quantitative 8.77H CBC/BMP Laboratory Tests 06/26/21 18:12 Microbiology Microbiology 06/27/21 Blood Culture, Received Pending Assessment/Plan Mrs. Garibay is a 55 year old female with depression who is here with dyspnea and cough and found to be COVID positive. Patient was not vaccinated for Covid. We will treat patient for Covid pneumonia. Start patient on remdesivir and dexamethasone. Aspirin and Lovenox for DVT prophylaxis. Continue ceftriaxone and azithromycin, but can de-escalate if procalcitonin negative Plan / VTE VTE Prophylaxis Ordered?: Yes Plan Plan 1. Covid pneumonia Patient unvaccinated Remdesivir protocol Dexamethasone Day 1 of ceftriaxone and azithromycin. Can de-escalate if procalcitonin is negative Albuterol HFA Awake pronation as tolerated 2. Depression Continue venlafaxine 3. DVT prophylaxis Aspirin and Lovenox Disposition: Pending clinical improvement DEMETRA ARTEAGA DO Jun 27, 2021 03:14
[2021-06-27] MEDS ORDERED: dexameTHASONE 20MG/5ML VIAL (J1100 PER 1MG) IV ONE (03:25)
[2021-06-27] MEDS ORDERED: ALBUTEROL 90 MCG/ACT 8GM HFA INHALER INH PRN (03:25)
[2021-06-27 03:31] LABS: INR 1.06; PROTHROMBIN TIME 14.3 SECONDS (12.7-14.5)
[2021-06-27 03:32] LABS: PARTIAL THROMBOPLASTIN TIME 29.2 SECONDS (25.9-37.0)
[2021-06-27 03:34] LABS: D-DIMER QUANT 683.49 ng/ml (<500)
[2021-06-27] MEDS ORDERED: SODIUM CHLORIDE 0.9% INJ 10 ML SYR IV ONE (05:00)
[2021-06-27] MEDS: AZITHROMYCIN INJ 500 MG, VIAL MATE ADAPTER 1 EACH in NS 250 ML IV SCH (06:42)
[2021-06-27] MEDS: ASPIRIN 81MG ENTERIC TABLET PO SCH (08:09)
[2021-06-27] MEDS: dexameTHASONE 4 MG/ML 1ML VIAL (J1100 PER 1MG) IV SCH (08:09)
[2021-06-27] MEDS: VENLAFAXINE **XR** 75MG CAPSULE PO SCH (08:09)
[2021-06-27] MEDS: ENOXAPARIN 40MG/0.4ML SYRINGE (J1650 PER 10MG) SC SCH (08:10)
[2021-06-27 08:34] LABS: APPEARANCE, URINE HAZY (CLEAR); BACTERIA, URINE AUTO NEGATIVE (NEGATIVE); BILIRUBIN, URINE AUTO NEGATIVE (NEGATIVE); BLOOD, URINE BLOOD NEGATIVE (NEGATIVE); COLOR, URINE YELLOW (YELLOW); GLUCOSE, URINE (UA) AUTO 1+ mg/dL (NEGATIVE); KETONE, URINE AUTO NEGATIVE (NEGATIVE); LEUKOCYTE ESTERASE, URINE AUTO NEGATIVE (NEGATIVE); NITRITE, URINE AUTO NEGATIVE (NEGATIVE); PROTEIN, URINE AUTO 1+ mg/dL (NEGATIVE); RBC, URINE AUTO 2 /HPF (0-3); SQUAMOUS EPITHELIAL CELL UR AU 3 /HPF (0-6); TRANSITIONAL EPITHELIAL AUTO 1 /HPF; UROBILINOGEN, URINE AUTO 0.2 mg/dL (0.0-2.0); WBC, URINE AUTO 12 /HPF (0-3)
[2021-06-27 08:36] LABS: SPECIFIC GRAVITY URINE AUTO >1.060 (1.002-1.035)
--- NOTE | 2021-06-27 10:09 | IPNPDOC ---
Text Note Date of Service The patient was seen on 06/27/21. NOTE Subjective: Patient is a 55-year-old female with a history of depression who is here for dyspnea and cough was found to be Covid positive. Patient initially started feeling sick 2 weeks ago and was diagnosed on . 1 week ago she started feeling short of breath. Patient presented to the emergency department and saturated down to 85% on room air. Patient initially only required 2 L nasal cannula but is now requiring 10 L via high flow nasal cannula. Patient says that when she is laying on her chest she is feeling okay but when she exerts herself she is short of breath. Patient denies any other symptoms at this time. Review of systems: General: Patient denies fevers HEENT: Patient denies headaches Cardiovascular: Patient denies chest pain Respiratory: Patient reports shortness of breath with exertion but denies shortness of breath with laying flat on her stomach GI: Patient denies abdominal pain, nausea, vomiting, diarrhea : Patient denies increased frequency or pain with urination Extremities: Patient denies swelling or pain in extremities Neurological: Patient denies numbness or tingling in legs Physical exam: Vitals: See below General: Alert and oriented female who is laying prone when I walked into the room. Patient had a cannula oxygen in place. Patient did not appear to be in any acute distress. HEENT: Normocephalic, atraumatic, moist mucous membranes. Neck: No lymphadenopathy or thyromegaly Cardiac: Regular rate and rhythm, no murmurs, normal S1, normal S2 Pulm: Clear to auscultation bilaterally. No wheezes, rhonchi, rales Abd: Nondistended, nontender to palpation, normal bowel sounds Ext: No edema bilateral lower extremities Labs: See below Imaging: No new imaging has been performed Assessment/plan: 55-year-old female with a history depression who was found to have hypoxia secondary to Covid pneumonia 1. Covid pneumonia. Patient is unvaccinated. Patient was started on remdesivir and dexamethasone. I spoke with Dr. Stahl of pulmonology and he agreed that baricitinib was an option for this patient. Patient will be started on baricitinib at this time. Procalcitonin is still pending and if negative, ceftriaxone azithromycin can be discontinued. I encouraged the patient to continue to prone as much as possible. 2. Depression. Continue venlafaxine DVT Prophylaxis: Lovenox Disposition: Pending clinical improvement VS,Minerva, I+O VS, Minerva, I+O Laboratory Tests 06/26/21 18:12 Vital Signs Date Time Temp Pulse Resp B/P (MAP) Pulse Ox O2 Delivery O2 Flow Rate FiO2 06/27/21 06:00 93 High Flow Cannula 10.0 06/27/21 05:30 55 06/27/21 02:37 97.3 18 111/70 (84) I&O- Last 24 Hours up to 6 AM 06/27/21 06:00 Intake Total 170 ml Output Total 0 ml Balance 170 ml ALEJANDRINA KIRBY DO Jun 27, 2021 10:09
[2021-06-27] MEDS: BARICITINIB 2MG TABLET (OLUMIANT) FOR EUA PO SCH (13:54)
--- NOTE | 2021-06-27 20:13 | IPNPDOC ---
Subjective Date Seen The patient was seen on 06/27/21. Subjective Chief Complaint/HPI The night team was notified that her oxygen requiring are 40L 85% on Vapotherm. Patient has CRISTINA and occasionally wears CPAP at night. Patient is unsure of her CPAP settings. Spoke with respiratory therapist. Okay to start at 10 for now. I transferred patient to higher level of care from med/surg status to ICU status for increasing oxygen requirements. Objective Physical Examination General Exam: Positive: Alert, Cooperative Eye Exam: Positive: EOMI; Negative: Sclera icteric ENT Exam: Positive: Atraumatic Neck Exam: Positive: Supple Chest Exam: Positive: Rhonchi Heart Exam: Positive: Rate Normal, Regular Rhythm Abdomen Exam: Positive: Normal bowel sounds, Soft; Negative: Tenderness Neuro Exam: Positive: Normal Speech, Cranial Nerves 3-12 NL Psych Exam: Positive: Mental status NL, Mood NL Assessment /Plan Plan/VTE VTE Prophylaxis Ordered?: Yes VS, I&O, 24H, Fishbone Vital Signs/I&O Vital Signs Date Time Temp Pulse Resp B/P (MAP) Pulse Ox O2 Delivery O2 Flow Rate FiO2 06/27/21 20:08 95 HVNI-Vapotherm 40.0 85 06/27/21 18:00 52 17 06/27/21 16:00 96.9 06/27/21 14:00 110/70 (83) I&O- Last 24 Hours up to 6 AM 06/27/21 06:00 Intake Total 170 ml Output Total 0 ml Balance 170 ml Laboratory Data 24H LABS Laboratory Tests 2 06/27/21 02:07: Magnesium Level 2.2, Ferritin 861H, Lactate Dehydrogenase 336H, C-Reactive Protein, Quantitative 8.77H 06/27/21 03:05: 06/27/21 03:15: Prothrombin Time 14.3H, Prothromb Time International Ratio 1.06, Activated Partial Thromboplast Time 29.2, Fibrinogen 689H, D-Dimer, Quantitative 683.49H 06/27/21 08:08: Urine Color YELLOW, Urine Appearance HAZY, Urine pH 5.0, Urine Specific [place] >1.060H, Urine Protein 1+H, Urine Glucose (Auto)(UA) 1+H, Urine Ketones (Auto) NEGATIVE, Urine Blood NEGATIVE, Urine Nitrite NEGATIVE, Urine Bilirubin NEGAT LEELA, Urine Urobilinogen 0.2, Urine Leukocyte Esterase (Auto) NEGATIVE, Urine WBC (Auto) 12H, Urine RBC (Auto) 2, Urine Hyaline Casts (Auto) 0, Urine Bacteria (Auto) NEGATIVE, Urine Squamous Epithelial Cells 3, Urine Transitional Epithelial Cells 1, Urine Sperm (Auto) Microbiology Microbiology 06/27/21 Blood Culture, Received Pending 06/27/21 Blood Culture, Received Pending DEMETRA ARTEAGA DO Jun 27, 2021 20:13
[2021-06-27] MEDS: REMDESIVIR 100 MG in NS 250 ML IV SCH (23:42)
[2021-06-28] VITALS (21 sets, daily range): BP systolic 88–134; BP diastolic 50–78
[2021-06-28] MEDS: SODIUM CHLORIDE 0.9% INJ 10 ML SYR IV SCH (00:56)
[2021-06-28] MEDS: cefTRIAXone SOD 1 GM in D5W MINI-BAG PLUS 50 ML IV SCH (00:56)
[2021-06-28 04:57] LABS: BASO % 0.2 % (0.0-1.0); HEMATOCRIT 38.2 % (36.0-47.0); HEMOGLOBIN 12.4 g/dl (12.0-15.5); LYMPH # 0.9 10^3/uL (1.5-5.0); LYMPH % 10.8 % (24.0-44.0); MEAN CORPUSCULAR HEMOGLOBIN 29.3 pg (27.0-33.0); MEAN CORPUSCULAR HGB CONC 32.5 g/dl (32.0-36.5); MEAN CORPUSCULAR VOLUME 90.3 fl (80.0-96.0); MONO # 0.6 10^3/uL (0.0-0.8); MONO % 7.1 % (2.0-8.0); NEUTROPHILS # 6.9 10^3/uL (1.5-8.5); NEUTROPHILS % 80.7 % (36.0-66.0); PLATELET COUNT, AUTOMATED 216 10^3/uL (150-450); RED BLOOD COUNT 4.23 10^6/uL (4.00-5.40); WHITE BLOOD COUNT 8.6 10^3/uL (4.0-10.0)
[2021-06-28 05:26] LABS: ALBUMIN 2.1 GM/DL (3.2-5.2); ALT/SGPT 30 U/L (12-78); BILIRUBIN,DIRECT 0.1 MG/DL (0.0-0.2); BILIRUBIN,TOTAL 0.2 MG/DL (0.2-1.0); BLOOD UREA NITROGEN 23 MG/DL (7-18); CALCIUM LEVEL 8.3 MG/DL (8.5-10.1); CARBON DIOXIDE LEVEL 32 MEQ/L (21-32); CHLORIDE LEVEL 104 MEQ/L (98-107); CREATININE FOR GFR 0.66 MG/DL (0.55-1.30); GLOMERULAR FILTRATION RATE > 60.0 (>51); GLUCOSE, FASTING 184 MG/DL (70-100); MAGNESIUM LEVEL 2.5 MG/DL (1.8-2.4); POTASSIUM SERUM 4.9 MEQ/L (3.5-5.1); SODIUM LEVEL 139 MEQ/L (136-145); TOTAL PROTEIN 6.1 GM/DL (6.4-8.2)
[2021-06-28] MEDS: AZITHROMYCIN INJ 500 MG, VIAL MATE ADAPTER 1 EACH in NS 250 ML IV SCH (06:10)
[2021-06-28] MEDS: ASPIRIN 81MG ENTERIC TABLET PO SCH (07:46)
[2021-06-28] MEDS: VENLAFAXINE **XR** 75MG CAPSULE PO SCH (07:46)
[2021-06-28] MEDS: BARICITINIB 2MG TABLET (OLUMIANT) FOR EUA PO SCH (07:46)
[2021-06-28] MEDS: dexameTHASONE 4 MG/ML 1ML VIAL (J1100 PER 1MG) IV SCH (07:46)
[2021-06-28] MEDS: ENOXAPARIN 40MG/0.4ML SYRINGE (J1650 PER 10MG) SC SCH (07:47)
--- NOTE | 2021-06-28 11:24 | IPNPDOC ---
Text Note Date of Service The patient was seen on 06/28/21. NOTE Subjective: Patient is a 55-year-old female with a history of depression who is here for dyspnea and cough and found to be Covid positive. Patient initially started feeling sick 2 weeks ago was diagnosed on 06/15/2021 with COVID-19. Patient started feeling short of breath 1 week ago. Patient is now on max Vapotherm. Patient did have to be transitioned to CPAP overnight. Patient is supposed to wear CPAP according to her but does not at home. Patient states she is feeling mildly better than she was yesterday but is still feeling very tired. Patient becomes short of breath when she moves around. Review of systems: General: Patient denies fevers HEENT: Patient denies headaches Cardiovascular: Patient denies chest pain Respiratory: Patient reports shortness of breath no more around but denies shortness of breath at rest GI: Patient denies abdominal pain, nausea, vomiting, diarrhea : Patient denies increased frequency or pain with urination Extremities: Patient denies swelling or pain in extremities Neurological: Patient denies numbness or tingling in legs Physical exam: Vitals: See below General: Alert and oriented male female patient who sitting up in bed when I walked in the room. Patient had Vapotherm nasal cannula in place. Patient did not appear to be in any acute distress. HEENT: Normocephalic, atraumatic, moist mucous membranes. Neck: No lymphadenopathy or thyromegaly Cardiac: Regular rate and rhythm, no murmurs, normal S1, normal S2 Pulm: Clear to auscultation bilaterally. No wheezes, rhonchi, rales Abd: Nondistended, nontender to palpation, normal bowel sounds Ext: No edema bilateral lower extremities Skin: Patient has scaly plaques on the anterior aspect of the lower legs bilaterally Labs: See below Imaging: No new imaging has been performed Assessment/plan: 55-year-old female with history of depression who was found to be hypoxic secondary to Covid pneumonia 1. Acute hypoxic respiratory failure. Patient will need CPAP therapy overnight in order to maintain her oxygen saturations. We will continue the CPAP overnight and if the patient tolerate Vapotherm during the day, we will continue on this. I expressed to the patient that patient needs to be proning as much as possible and making sure she is staying hydrated with oral hydration. We will continue with Vapotherm therapy and attempt to wean today. 2. Covid pneumonia. Patient is unvaccinated. She is on remdesivir dexamethasone and baricitinib. Will continue oxygenation as above. Continue to prone as above. 3. Plaque psoriasis. Patient has a history of plaque psoriasis and if the areas are bothering her, betamethasone ointment can be prescribed. 4. Depression. Continue venlafaxine. DVT Prophylaxis: Lovenox Disposition: Pending clinical improvement Minerva LITTLEJOHN, I+O VSMinerva I+O Laboratory Tests 06/28/21 04:44 Vital Signs Date Time Temp Pulse Resp B/P (MAP) Pulse Ox O2 Delivery O2 Flow Rate FiO2 06/28/21 09:23 75 06/28/21 09:00 56 20 99/57 (71) 91 NIPPV (BIPAP/CPAP) 06/28/21 08:00 96.9 06/27/21 20:08 40.0 I&O- Last 24 Hours up to 6 AM 06/28/21 06:00 Intake Total 1355 ml Output Total 630 ml Balance 725 ml ALEJANDRINA KIRBY DO Jun 28, 2021 11:24
[2021-06-28] MEDS: RAMELTEON 8 MG TAB (ROZEREM) PO SCH (20:12)
[2021-06-28] MEDS: REMDESIVIR 100 MG in NS 250 ML IV SCH (23:32)
[2021-06-29] VITALS (14 sets, daily range): BP systolic 97–128; BP diastolic 55–83
[2021-06-29] MEDS: SODIUM CHLORIDE 0.9% INJ 10 ML SYR IV SCH (01:47)
[2021-06-29] MEDS: cefTRIAXone SOD 1 GM in D5W MINI-BAG PLUS 50 ML IV SCH (01:47)
[2021-06-29 04:58] LABS: BASO % 0.1 % (0.0-1.0); HEMATOCRIT 36.4 % (36.0-47.0); HEMOGLOBIN 11.8 g/dl (12.0-15.5); LYMPH # 1.1 10^3/uL (1.5-5.0); LYMPH % 7.1 % (24.0-44.0); MEAN CORPUSCULAR HEMOGLOBIN 29.1 pg (27.0-33.0); MEAN CORPUSCULAR HGB CONC 32.4 g/dl (32.0-36.5); MEAN CORPUSCULAR VOLUME 89.9 fl (80.0-96.0); MONO # 0.8 10^3/uL (0.0-0.8); MONO % 5.2 % (2.0-8.0); NEUTROPHILS # 13.3 10^3/uL (1.5-8.5); NEUTROPHILS % 85.9 % (36.0-66.0); RED BLOOD COUNT 4.05 10^6/uL (4.00-5.40); WHITE BLOOD COUNT 15.5 10^3/uL (4.0-10.0)
[2021-06-29 05:09] LABS: PLATELET COUNT, AUTOMATED 318 10^3/uL (150-450)
[2021-06-29 05:15] LABS: INR 1.2; PARTIAL THROMBOPLASTIN TIME 27.6 SECONDS (25.9-37.0); PROTHROMBIN TIME 15.6 SECONDS (12.7-14.5)
[2021-06-29 05:27] LABS: ALBUMIN 2.1 GM/DL (3.2-5.2); ALT/SGPT 26 U/L (12-78); BILIRUBIN,DIRECT < 0.1 MG/DL (0.0-0.2); BILIRUBIN,TOTAL 0.2 MG/DL (0.2-1.0); BLOOD UREA NITROGEN 27 MG/DL (7-18); CARBON DIOXIDE LEVEL 30 MEQ/L (21-32); CHLORIDE LEVEL 104 MEQ/L (98-107); CPK CREATINE PHOSPHOKINASE 34 U/L (26-192); CREATININE FOR GFR 0.54 MG/DL (0.55-1.30); FERRITIN 698 NG/ML (8-252); GLOMERULAR FILTRATION RATE > 60.0 (>51); GLUCOSE, FASTING 165 MG/DL (70-100); LDH LACTATE DEHYDROGENASE 312 U/L (84-246); MAGNESIUM LEVEL 2.5 MG/DL (1.8-2.4); NT-PRO BNP 317 PG/ML (<125); POTASSIUM SERUM 4.5 MEQ/L (3.5-5.1); SODIUM LEVEL 138 MEQ/L (136-145); TOTAL PROTEIN 5.8 GM/DL (6.4-8.2); TROPONIN I < 0.02 NG/ML (< 0.10)
[2021-06-29] MEDS: AZITHROMYCIN INJ 500 MG, VIAL MATE ADAPTER 1 EACH in NS 250 ML IV SCH (05:42)
[2021-06-29] MEDS: dexameTHASONE 4 MG/ML 1ML VIAL (J1100 PER 1MG) IV SCH (08:58)
[2021-06-29] MEDS: ENOXAPARIN 40MG/0.4ML SYRINGE (J1650 PER 10MG) SC SCH (08:58)
[2021-06-29] MEDS: ASPIRIN 81MG ENTERIC TABLET PO SCH (08:58)
[2021-06-29] MEDS: VENLAFAXINE **XR** 75MG CAPSULE PO SCH (08:59)
[2021-06-29] MEDS: BARICITINIB 2MG TABLET (OLUMIANT) FOR EUA PO SCH (08:59)
[2021-06-29] MEDS: BETAMETHASONE DIP 0.05% OINT 15 GM TOP SCH ×2 (10:20→20:11)
--- NOTE | 2021-06-29 10:34 | IPNPDOC ---
Text Note Date of Service The patient was seen on 06/29/21. NOTE Subjective: Patient is a 55-year-old female with a history of depression who is here for dyspnea and cough and nonmucoid positive. Patient is sick started feeling sick 2 weeks ago was diagnosed on 06/15/2021 with COVID-19. Patient started feeling short of breath about a week ago. Patient is getting better and was able to be weaned a little bit off max Vapotherm yesterday. Patient is still on Vapotherm is currently on 85% FiO2 at 35 L/min. Patient does not have any complaints at this time. Review of systems: General: Patient denies fevers HEENT: Patient denies headaches Cardiovascular: Patient denies chest pain Respiratory: Patient reports improvement in the shortness of breath and cough. GI: Patient denies abdominal pain, nausea, vomiting, diarrhea : Patient denies increased frequency or pain with urination Extremities: Patient denies swelling or pain in extremities Neurological: Patient denies numbness or tingling in legs Physical exam: Vitals: See below General: Alert and oriented female patient sitting up in bed. Patient had Vapotherm nasal cannula in place. Patient not appear to be in any acute distress. HEENT: Normocephalic, atraumatic, moist mucous membranes. Neck: No lymphadenopathy or thyromegaly Cardiac: Regular rate and rhythm, no murmurs, normal S1, normal S2 Pulm: Clear to auscultation bilaterally. No wheezes, rhonchi, rales Abd: Nondistended, nontender to palpation, normal bowel sounds Ext: No edema bilateral lower extremities skin: Patient has scaly plaques on the anterior aspect of the lower legs bilaterally. Labs: See below Imaging: No new imaging has been performed Assessment/plan: 55-year-old female with history of depression was found to be hypoxic secondary to Covid pneumonia 1. Acute hypoxic respiratory failure. Patient needs CPAP therapy overnight as she has a history of CRISTINA. Patient is able to tolerate Vapotherm in the day and will continue this. I expressed the patient she needs to be proning as much as possible. Continue remdesivir, dexamethasone, and baricitinib. 2. Covid pneumonia. Patient is unvaccinated. She is on remdesivir, dexamethasone, and baricitinib. Continue oxygenation above. Continue to prone as much as possible. 3. Plaque psoriasis. Patient has areas of plaque psoriasis on her legs like will be treated with betamethasone ointment. 4. Depression. Continue venlafaxine. 5. Leukocytosis. Patient is white blood cell count did elevate today. Patient's procalcitonin was less than 0.05 so her ceftriaxone and azithromycin have been discontinued at this time. We will continue to monitor for signs of superimposed bacterial infection. DVT Prophylaxis: Lovenox Disposition: Pending clinical improvement VS,Minerva, I+O VS, Minerva, I+O Laboratory Tests 06/29/21 04:35 06/29/21 04:36 Vital Signs Date Time Temp Pulse Resp B/P (MAP) Pulse Ox O2 Delivery O2 Flow Rate FiO2 06/29/21 09:00 53 24 119/83 (95) 97 HVNI-Vapotherm 35.0 85 06/29/21 08:00 97.0 I&O- Last 24 Hours up to 6 AM 06/29/21 06:00 Intake Total 1215 ml Output Total 785 ml Balance 430 ml ALEJANDRINA KIRBY DO Jun 29, 2021 10:34
[2021-06-29 14:08] LABS: BODY FLUID CULTURE Not indicated. (.); LEGIONELLA ANTIGEN URINE Negative (Negative); ORGANISM ID Not indicated. (.); SPECIMEN SOURCE Urine (.); URINE STREP PNEUMONIAE ANTIGEN Negative (Negative)
--- NOTE | 2021-06-29 16:33 | ECGEPIP ---
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
[2021-06-29] MEDS: RAMELTEON 8 MG TAB (ROZEREM) PO SCH (20:11)
[2021-06-30] VITALS: BP 131/67
[2021-06-30] MEDS: SODIUM CHLORIDE 0.9% INJ 10 ML SYR IV SCH (00:13)
[2021-06-30] MEDS: REMDESIVIR 100 MG in NS 250 ML IV SCH (00:13)
[2021-06-30 04:00] VITALS: BP 130/75
[2021-06-30 05:08] LABS: BASO % 0.1 % (0.0-1.0); HEMATOCRIT 37.5 % (36.0-47.0); HEMOGLOBIN 12.2 g/dl (12.0-15.5); LYMPH % 6.2 % (24.0-44.0); MEAN CORPUSCULAR HEMOGLOBIN 29.2 pg (27.0-33.0); MEAN CORPUSCULAR HGB CONC 32.5 g/dl (32.0-36.5); MEAN CORPUSCULAR VOLUME 89.7 fl (80.0-96.0); MONO # 0.8 10^3/uL (0.0-0.8); MONO % 4.8 % (2.0-8.0); NEUTROPHILS # 14.4 10^3/uL (1.5-8.5); NEUTROPHILS % 87.4 % (36.0-66.0); PLATELET COUNT, AUTOMATED 291 10^3/uL (150-450); RED BLOOD COUNT 4.18 10^6/uL (4.00-5.40); WHITE BLOOD COUNT 16.4 10^3/uL (4.0-10.0)
[2021-06-30 05:28] LABS: BLOOD UREA NITROGEN 21 MG/DL (7-18); CARBON DIOXIDE LEVEL 33 MEQ/L (21-32); CHLORIDE LEVEL 106 MEQ/L (98-107); GLOMERULAR FILTRATION RATE > 60.0 (>51); GLUCOSE, FASTING 129 MG/DL (70-100); MAGNESIUM LEVEL 2.4 MG/DL (1.8-2.4); POTASSIUM SERUM 5.3 MEQ/L (3.5-5.1); SODIUM LEVEL 141 MEQ/L (136-145)
[2021-06-30 08:00] VITALS: BP 122/63
[2021-06-30] MEDS: VENLAFAXINE **XR** 75MG CAPSULE PO SCH (08:09)
[2021-06-30] MEDS: BETAMETHASONE DIP 0.05% OINT 15 GM TOP SCH ×2 (08:09→21:02)
[2021-06-30] MEDS: ASPIRIN 81MG ENTERIC TABLET PO SCH (08:09)
[2021-06-30] MEDS: ENOXAPARIN 40MG/0.4ML SYRINGE (J1650 PER 10MG) SC SCH (08:10)
[2021-06-30] MEDS: BARICITINIB 2MG TABLET (OLUMIANT) FOR EUA PO SCH (08:10)
[2021-06-30] MEDS: dexameTHASONE 4 MG/ML 1ML VIAL (J1100 PER 1MG) IV SCH (08:10)
--- NOTE | 2021-06-30 10:40 | IPNPDOC ---
Text Note Date of Service The patient was seen on 06/30/21. NOTE Subjective: Patient is a 55-year-old female with history of depression who is here for dyspnea and cough who was found to be Covid positive. Patient started getting sick about 2 weeks ago and was diagnosed on 06/15/2021. Patient is feeling better today however, she was complaining of not being able to have a bowel movement since being here. Patient is otherwise doing well does not have any other complaints at this time. Review of systems: General: Patient denies fevers HEENT: Patient denies headaches Cardiovascular: Patient denies chest pain Respiratory: Patient denies shortness of breath, cough GI: Patient denies abdominal pain, nausea, vomiting, diarrhea. Patient reports constipation : Patient denies increased frequency or pain with urination Extremities: Patient denies swelling or pain in extremities Neurological: Patient denies numbness or tingling in legs Physical exam: Vitals: See below General: Alert and oriented female patient was sitting up in bed. Patient had Vapotherm nasal cannula in place. Patient not appear to be in any acute distress. HEENT: Normocephalic, atraumatic, moist mucous membranes. Neck: No lymphadenopathy or thyromegaly Cardiac: Regular rate and rhythm, no murmurs, normal S1, normal S2 Pulm: Clear to auscultation bilaterally. No wheezes, rhonchi, rales Abd: Nondistended, nontender to palpation, normal bowel sounds Ext: No edema bilateral lower extremities Skin: Scaly plaques have improved on the anterior aspect of the lower legs bilaterally Labs: See below Imaging: No new imaging has been performed Assessment/plan: 55-year-old female with history of depression who was found to be hypoxic secondary to COVID-19 pneumonia 1. Acute hypoxic respiratory failure. Patient needs CPAP therapy overnight she has a history of CRISTINA. Patient's been able to tolerate Vapotherm during the day and we will continue to wean this down. Patient is currently on 25 L/min 55% FiO2. Continue remdesivir, dexamethasone, and baricitinib. 2. COVID-19 pneumonia. Patient is unvaccinated. Continue treatment as above. 3. Hyperkalemia. Patient's potassium was mildly elevated today. We will recheck this later on in the day. After reviewing the patient's medications, I do not see a cause for her hyperkalemia. We will continue to monitor her hyperkalemia at this time. 4. Plaque psoriasis. Patient has area of plaque psoriasis that we treated with betamethasone ointment. These are improving. 5. Constipation. Colace twice daily. 6. Leukocytosis. Patient's white blood cell count continues to be elevated. Patient had a negative procalcitonin so her ceftriaxone and azithromycin were stopped. Patient does not complain of any pain. We will continue to monitor for signs of superimposed bacterial infection. Patient is also on steroids which may be the cause of the leukocytosis 7. Depression. Continue venlafaxine DVT Prophylaxis: Lovenox Disposition: Pending clinical improvement. VS,Fishbone, I+O VS, Fishbone, I+O Laboratory Tests 06/30/21 04:47 Vital Signs Date Time Temp Pulse Resp B/P (MAP) Pulse Ox O2 Delivery O2 Flow Rate FiO2 06/30/21 04:07 91 HVNI-Vapotherm 25.0 55 06/30/21 04:00 96.6 57 22 130/75 (93) I&O- Last 24 Hours up to 6 AM 06/30/21 06:00 Intake Total 1580 ml Output Total 775 ml Balance 805 ml ALEJANDRINA KIRBY DO Jun 30, 2021 10:40
[2021-06-30] MEDS: DOCUSATE SODIUM 100MG CAPSULE PO SCH ×2 (11:00→21:02)
[2021-06-30 12:00] VITALS: BP 126/68
[2021-06-30 13:34] LABS: BLOOD UREA NITROGEN 18 MG/DL (7-18); CALCIUM LEVEL 8.5 MG/DL (8.5-10.1); CARBON DIOXIDE LEVEL 29 MEQ/L (21-32); CHLORIDE LEVEL 103 MEQ/L (98-107); CREATININE FOR GFR 0.66 MG/DL (0.55-1.30); GLOMERULAR FILTRATION RATE > 60.0 (>51); GLUCOSE, FASTING 253 MG/DL (70-100); POTASSIUM SERUM 4.4 MEQ/L (3.5-5.1); SODIUM LEVEL 137 MEQ/L (136-145)
[2021-06-30 15:07] LABS: MYCOPLASMA PNEUMONIAE IgG 298 U/mL (0-99); MYCOPLASMA PNEUMONIAE IgM <770 U/mL (0-769)
[2021-06-30 16:00] VITALS: BP 127/68
[2021-06-30 20:00] VITALS: BP 146/77
[2021-06-30] MEDS: RAMELTEON 8 MG TAB (ROZEREM) PO SCH (21:02)
[2021-07-01] VITALS (18 sets, daily range): BP systolic 86–130; BP diastolic 50–74; O2SAT 89–98
[2021-07-01] MEDS: REMDESIVIR 100 MG in NS 250 ML IV SCH (00:17)
[2021-07-01] MEDS: SODIUM CHLORIDE 0.9% INJ 10 ML SYR IV SCH (00:17)
[2021-07-01 06:11] LABS: INR 1.2; PARTIAL THROMBOPLASTIN TIME 27.5 SECONDS (25.9-37.0); PROTHROMBIN TIME 15.7 SECONDS (12.7-14.5)
[2021-07-01 06:16] LABS: ALT/SGPT 21 U/L (12-78); BILIRUBIN,DIRECT 0.1 MG/DL (0.0-0.2); BILIRUBIN,TOTAL 0.4 MG/DL (0.2-1.0); BLOOD UREA NITROGEN 13 MG/DL (7-18); CALCIUM LEVEL 8.3 MG/DL (8.5-10.1); CARBON DIOXIDE LEVEL 32 MEQ/L (21-32); CHLORIDE LEVEL 104 MEQ/L (98-107); CPK CREATINE PHOSPHOKINASE 21 U/L (26-192); CREATININE FOR GFR 0.49 MG/DL (0.55-1.30); FERRITIN 425 NG/ML (8-252); GLOMERULAR FILTRATION RATE > 60.0 (>51); GLUCOSE, FASTING 106 MG/DL (70-100); LDH LACTATE DEHYDROGENASE 341 U/L (84-246); MAGNESIUM LEVEL 2.1 MG/DL (1.8-2.4); NT-PRO BNP 850 PG/ML (<125); POTASSIUM SERUM 4.8 MEQ/L (3.5-5.1); SODIUM LEVEL 138 MEQ/L (136-145); TOTAL PROTEIN 6.1 GM/DL (6.4-8.2); TROPONIN I < 0.02 NG/ML (< 0.10)
[2021-07-01 06:23] LABS: BASO % 0.1 % (0.0-1.0); EOS % 0.1 % (0.0-3.0); HEMATOCRIT 38.8 % (36.0-47.0); HEMOGLOBIN 12.7 g/dl (12.0-15.5); LYMPH # 0.9 10^3/uL (1.5-5.0); LYMPH % 5.1 % (24.0-44.0); MEAN CORPUSCULAR HEMOGLOBIN 29.1 pg (27.0-33.0); MEAN CORPUSCULAR HGB CONC 32.7 g/dl (32.0-36.5); MONO # 0.6 10^3/uL (0.0-0.8); MONO % 3.4 % (2.0-8.0); NEUTROPHILS % 89.9 % (36.0-66.0); PLATELET COUNT, AUTOMATED 279 10^3/uL (150-450); RED BLOOD COUNT 4.36 10^6/uL (4.00-5.40); WHITE BLOOD COUNT 17.8 10^3/uL (4.0-10.0)
[2021-07-01] MEDS: DOCUSATE SODIUM 100MG CAPSULE PO SCH ×2 (09:22→20:03)
[2021-07-01] MEDS: BARICITINIB 2MG TABLET (OLUMIANT) FOR EUA PO SCH (09:23)
[2021-07-01] MEDS: ASPIRIN 81MG ENTERIC TABLET PO SCH (09:24)
[2021-07-01] MEDS: dexameTHASONE 4 MG/ML 1ML VIAL (J1100 PER 1MG) IV SCH (09:24)
[2021-07-01] MEDS: VENLAFAXINE **XR** 75MG CAPSULE PO SCH (09:24)
[2021-07-01] MEDS: ENOXAPARIN 40MG/0.4ML SYRINGE (J1650 PER 10MG) SC SCH (09:24)
[2021-07-01] MEDS: BETAMETHASONE DIP 0.05% OINT 15 GM TOP SCH ×2 (09:25→20:06)
[2021-07-01] MEDS ORDERED: SENNA 8.6 MG TAB (SENOKOT) PO PRN (13:15)
--- NOTE | 2021-07-01 13:15 | IPNPDOC ---
Text Note Date of Service The patient was seen on 07/01/21. NOTE Subjective: Patient is a 55-year-old female presented with a history of deprsonny freddie who is here for dyspnea and cough was found to be Covid positive. Patient started getting sick about 2 weeks prior to coming to the hospital and was diagnosed with COVID-19 on 06/15/2021. Patient is feeling better today however, she is complaining of not being able to have a bowel movement. Patient was started on Colace yesterday but this is not helped. Patient is otherwise doing well and does not of any other complaints at this time. Review of systems: General: Patient denies fevers HEENT: Patient denies headaches Cardiovascular: Patient denies chest pain Respiratory: Patient denies shortness of breath, cough GI: Patient denies abdominal pain, nausea, vomiting, diarrhea : Patient denies increased frequency or pain with urination Extremities: Patient denies swelling or pain in extremities Neurological: Patient denies numbness or tingling in legs Physical exam: Vitals: See below General: Alert and oriented female patient with Vapotherm nasal cannula in place who was sitting up in bed when I walked in. Patient did not appear to be in any acute distress. HEENT: Normocephalic, atraumatic, moist mucous membranes. Neck: No lymphadenopathy or thyromegaly Cardiac: Regular rate and rhythm, no murmurs, normal S1, normal S2 Pulm: Clear to auscultation bilaterally. No wheezes, rhonchi, rales Abd: Nondistended, nontender to palpation, normal bowel sounds Ext: No edema bilateral lower extremities Skin: Scaly plaques have improved on the anterior aspect of the lower legs bila terally Labs: See below Imaging: No new imaging has been performed Assessment/plan: 55-year-old female with history depression was found to be hypoxic secondary to COVID-19 pneumonia 1. Acute hypoxic respiratory failure. Patient needs CPAP therapy overnight as she has a history of CRISTINA. Patient's been able to tolerate Vapotherm during the day and will continue wean down. Patient is still on the same settings as yesterday morning which is 25 L/min at 55% of FiO2. Continue remdesivir, dexa methasone and baricitinib. 2. COVID-19 pneumonia. Patient is unvaccinated. Continue treatment as above. 3. Hyperkalemia, resolved. Patient had a potassium level that was elevated yesterday however, on recheck yesterday and today it was normal. We will continue to monitor at this time. 4. Plaque psoriasis. Patient has area of plaque psoriasis that we had been treating with betamethasone ointment. These are improving. 5. Constipation. Patient has been on Colace twice daily and we will add senna today. 6. Leukocytosis. Patient's white blood cell count is elevated. Procalcitonin is still negative. Patient's leukocytosis may be secondary to steroids. Continue to monitor for signs for superimposed bacterial infection. 7. Depression. Continue venlafaxine. DVT Prophylaxis: Lovenox Disposition: Pending clinical improvement VS,Minerva, I+O VS, Minerva, I+O Laboratory Tests 07/01/21 05:28 Vital Signs Date Time Temp Pulse Resp B/P (MAP) Pulse Ox O2 Delivery O2 Flow Rate FiO2 07/01/21 13:00 52 99/62 (74) 91 HVNI-Vapotherm 25.0 55 07/01/21 12:00 99.0 26 I&O- Last 24 Hours up to 6 AM 07/01/21 06:00 Intake Total 1260 ml Output Total 1900 ml Balance -640 ml ALEJANDRINA KIRBY DO Jul 01, 2021 13:15
[2021-07-01] MEDS: SENNA 8.6 MG TAB (SENOKOT) PO SCH ×2 (13:47→20:03)
[2021-07-01] MEDS ORDERED: NS 500 ML IV ONE ×2 (14:00→16:25)
[2021-07-01] MEDS ORDERED: LORazepam 2 MG/ML VIAL IV PRN (16:25)
[2021-07-01] MEDS: RAMELTEON 8 MG TAB (ROZEREM) PO SCH (20:03)
[2021-07-02] VITALS (11 sets, daily range): BP systolic 120–148; BP diastolic 65–80; O2SAT 90–95
[2021-07-02 06:18] LABS: BASO % 0.1 % (0.0-1.0); EOS % 0.1 % (0.0-3.0); HEMOGLOBIN 12.4 g/dl (12.0-15.5); LYMPH # 0.6 10^3/uL (1.5-5.0); LYMPH % 3.5 % (24.0-44.0); MEAN CORPUSCULAR HEMOGLOBIN 28.8 pg (27.0-33.0); MEAN CORPUSCULAR HGB CONC 32.6 g/dl (32.0-36.5); MEAN CORPUSCULAR VOLUME 88.2 fl (80.0-96.0); MONO # 0.5 10^3/uL (0.0-0.8); NEUTROPHILS # 16.8 10^3/uL (1.5-8.5); PLATELET COUNT, AUTOMATED 579 10^3/uL (150-450); RED BLOOD COUNT 4.31 10^6/uL (4.00-5.40); WHITE BLOOD COUNT 18.2 10^3/uL (4.0-10.0)
[2021-07-02 06:30] LABS: BLOOD UREA NITROGEN 16 MG/DL (7-18); CARBON DIOXIDE LEVEL 29 MEQ/L (21-32); CHLORIDE LEVEL 104 MEQ/L (98-107); CREATININE FOR GFR 0.49 MG/DL (0.55-1.30); GLOMERULAR FILTRATION RATE > 60.0 (>51); GLUCOSE, FASTING 123 MG/DL (70-100); MAGNESIUM LEVEL 2.2 MG/DL (1.8-2.4); POTASSIUM SERUM 4.1 MEQ/L (3.5-5.1); SODIUM LEVEL 138 MEQ/L (136-145)
[2021-07-02] MEDS: DOCUSATE SODIUM 100MG CAPSULE PO SCH ×2 (08:03→21:11)
[2021-07-02] MEDS: SENNA 8.6 MG TAB (SENOKOT) PO SCH ×2 (08:03→21:11)
[2021-07-02] MEDS: ENOXAPARIN 40MG/0.4ML SYRINGE (J1650 PER 10MG) SC SCH (08:04)
[2021-07-02] MEDS: ASPIRIN 81MG ENTERIC TABLET PO SCH (08:04)
[2021-07-02] MEDS: dexameTHASONE 4 MG/ML 1ML VIAL (J1100 PER 1MG) IV SCH (08:04)
[2021-07-02] MEDS: BETAMETHASONE DIP 0.05% OINT 15 GM TOP SCH ×2 (08:04→21:13)
[2021-07-02] MEDS: VENLAFAXINE **XR** 75MG CAPSULE PO SCH (08:05)
[2021-07-02] MEDS: BARICITINIB 2MG TABLET (OLUMIANT) FOR EUA PO SCH (08:05)
--- NOTE | 2021-07-02 12:11 | IPNPDOC ---
Text Note Date of Service The patient was seen on 07/02/21. NOTE Patient was seen and examined. First encounter with the patient. She continues to be on high flow nasal cannula and oxygen has been bumped up to 65% of FiO2 from 55%. She does not complain of any worsening symptoms. Physical exam: General: Alert and oriented female patient with Vapotherm nasal cannula in place who was sitting up in bed. Patient did not appear to be in any acute distress. HEENT: Normocephalic, atraumatic, moist mucous membranes. Neck: No lymphadenopathy or thyromegaly Cardiac: Regular rate and rhythm, no murmurs, normal S1, normal S2 Pulm: Clear to auscultation bilaterally. No wheezes, rhonchi, rales Abd: Nondistended, nontender to palpation, normal bowel sounds Ext: No edema bilateral lower extremities Skin: Scaly plaques have improved on the anterior aspect of the lower legs bilaterally Labs: See below Imaging: No new imaging has been performed Assessment/plan: Patient is a 55-year-old female presented with a history of depression who is h ere for dyspnea and cough was found to be Covid positive. Patient started getting sick about 2 weeks prior to coming to the hospital and was diagnosed with COVID-19 on 06/15/2021. The patient is unvaccinated for Covid 19. Has been on triple therapy with remdesivir, dexamethasone, and baricitinib 1. Acute hypoxic respiratory failure. Patient needs CPAP therapy overnight as she has a history of CRISTINA. Patient's been able to tolerate Vapotherm during the day and will continue wean down. Patient is on high flow which is 25 L/min at 65% of FiO2. Continue remdesivir, dexamethasone and baricitinib. Continue supplemental oxygen to maintain saturation about 92. Continue DVT prophylaxis with Lovenox. Continue incentive spirometry and out of bed to chair 3 times a day. Continue with proning 2. COVID-19 pneumonia. Patient is unvaccinated. Continue treatment as above. 3. Hyperkalemia, resolved. Patient had a potassium level that was elevated yesterday however, on recheck yesterday and today it was normal. We will continue to monitor at this time. 4. Plaque psoriasis. Patient has area of plaque psoriasis that we had been treating with betamethasone ointment. These are improving. 5. Constipation. Patient has been on Colace twice daily and senna . 6. Leukocytosis. Patient's white blood cell count is elevated. Procalcitonin is still negative. Patient's leukocytosis may be secondary to steroids. Continue to monitor for signs for superimposed bacterial infection. 7. Depression. Continue venlafaxine. DVT Prophylaxis: Lovenox Disposition: Pending clinical improvement VS,Fishbone, I+O VS, Fishbone, I+O Laboratory Tests 07/02/21 05:43 Vital Signs Date Time Temp Pulse Resp B/P (MAP) Pulse Ox O2 Delivery O2 Flow Rate FiO2 07/02/21 10:00 56 93 HVNI-Vapotherm 25.0 07/02/21 08:00 126/71 (89) 60 07/02/21 04:00 98.0 35 I&O- Last 24 Hours up to 6 AM 07/02/21 06:00 Intake Total 940 ml Output Total 1050 ml Balance -110 ml TICO BLEVINS MD Jul 02, 2021 12:11
[2021-07-02] MEDS: RAMELTEON 8 MG TAB (ROZEREM) PO SCH (21:11)
[2021-07-03] VITALS: BP 151/77
[2021-07-03 04:00] VITALS: BP 135/72
[2021-07-03 06:21] LABS: INR 1.23; PROTHROMBIN TIME 15.9 SECONDS (12.7-14.5)
[2021-07-03 06:22] LABS: PARTIAL THROMBOPLASTIN TIME 28.6 SECONDS (25.9-37.0)
[2021-07-03 06:34] LABS: ALT/SGPT 17 U/L (12-78); BILIRUBIN,DIRECT 0.1 MG/DL (0.0-0.2); BILIRUBIN,TOTAL 0.4 MG/DL (0.2-1.0); CPK CREATINE PHOSPHOKINASE 57 U/L (26-192); FERRITIN 438 NG/ML (8-252); LDH LACTATE DEHYDROGENASE 295 U/L (84-246); NT-PRO BNP 367 PG/ML (<125); TROPONIN I < 0.02 NG/ML (< 0.10)
[2021-07-03 08:00] VITALS: BP 97/54
[2021-07-03] MEDS: DOCUSATE SODIUM 100MG CAPSULE PO SCH ×2 (08:31→20:01)
[2021-07-03] MEDS: VENLAFAXINE **XR** 75MG CAPSULE PO SCH (08:31)
[2021-07-03] MEDS: BARICITINIB 2MG TABLET (OLUMIANT) FOR EUA PO SCH (08:32)
[2021-07-03] MEDS: SENNA 8.6 MG TAB (SENOKOT) PO SCH ×2 (08:32→20:01)
[2021-07-03] MEDS: ASPIRIN 81MG ENTERIC TABLET PO SCH (08:32)
[2021-07-03] MEDS: BETAMETHASONE DIP 0.05% OINT 15 GM TOP SCH ×2 (08:33→20:02)
[2021-07-03] MEDS: ENOXAPARIN 40MG/0.4ML SYRINGE (J1650 PER 10MG) SC SCH (08:33)
[2021-07-03] MEDS: dexameTHASONE 4 MG/ML 1ML VIAL (J1100 PER 1MG) IV SCH (08:33)
[2021-07-03] MEDS: MIRALAX *UNIT DOSE* 17GM PACKET PO SCH (09:00)
[2021-07-03 10:08] LABS: HEMATOCRIT 38.6 % (36.0-47.0); HEMOGLOBIN 12.3 g/dl (12.0-15.5); MEAN CORPUSCULAR HEMOGLOBIN 28.9 pg (27.0-33.0); MEAN CORPUSCULAR HGB CONC 31.9 g/dl (32.0-36.5); MEAN CORPUSCULAR VOLUME 90.6 fl (80.0-96.0); PLATELET COUNT, AUTOMATED 263 10^3/uL (150-450); RED BLOOD COUNT 4.26 10^6/uL (4.00-5.40); WHITE BLOOD COUNT 18.9 10^3/uL (4.0-10.0)
[2021-07-03 10:14] LABS: BLOOD UREA NITROGEN 17 MG/DL (7-18); CARBON DIOXIDE LEVEL 27 MEQ/L (21-32); CHLORIDE LEVEL 104 MEQ/L (98-107); GLOMERULAR FILTRATION RATE > 60.0 (>51); GLUCOSE, FASTING 111 MG/DL (70-100); POTASSIUM SERUM 3.9 MEQ/L (3.5-5.1); SODIUM LEVEL 137 MEQ/L (136-145)
--- NOTE | 2021-07-03 10:14 | REP ---
INDICATION: COVID PNA. COMPARISON: Comparison chest x-ray June 26, 2021. TECHNIQUE: Portable upright AP chest radiograph. FINDINGS: Extensive patchy interstitial infiltrates are again seen bilaterally consistent with viral pneumonia. There is been progressive opacifications in the left upper lobe, left base, and to a certain extent in the periphery of the right lung since the study done 1 week ago. Heart is not enlarged. No acute bony abnormality is seen. EKG electrodes are noted. IMPRESSION: Radiographic progression of extensive bilateral interstitial pneumonitis.. <Electronically signed by Aakash Alonso > 07/03/21 1010
--- NOTE | 2021-07-03 11:25 | IPNPDOC ---
Text Note Date of Service The patient was seen on 07/03/21. NOTE HPI: Ms. Garibay is a very pleasant 55 year old female who was admitted to [facility] due to COVID pneumonia. She was examined at bedside. She denies any dyspnea, coughing, chest pain, palpitation, fever, chills, or abdominal pain. She indicated constipation despite receiving bowel regimen. ROS: General: Denies fever or chills HEENT: Denies headaches Heart: Denies any chest pain or palpitation Lungs: Denies any dyspnea or coughing GI: Denies abdominal pain, nausea, or vomiting. Positive for constipation Extremities: Denies extremity pain Physical exam: General: Alert and oriented appropriate age wearing Vapotherm laying on bed. Does not appear to be in acute distress. HEENT: Normocephalic, atraumatic, mucous membrane moist and pink. Neck: Supple Cardiac: Regular rhythm,mild bradycardia, no murmurs, normal S1, normal S2 Pulmonary: Clear to auscultation bilaterally. No wheezing, rhonchi, rales auscultated. Mild accessory muscle use. Abdomen: Bowel sound auscultated in all 4 quadrants. No distention, no guarding, and no tenderness upon palpation. Extremities: No obvious edema in bilateral lower extremities Skin: Scaly plaques/patches in bilateral anterior meyer without drainage or bleeding. Labs: Please see below Imaging: CXR 07/03/2021 showed "Radiographic progression of extensive bilateral interstitial pneumonitis." CTA chest 06/26/2021 showed "No pulmonary embolism. Extensive ground-glass opacifications in bilateral lungs consistent with patient's history of COVID-19 infection." CXR 06/26/2021 showed "Mild cardiomegaly with diffuse mixed mild interstitial and alveolar infiltrates." Assessment and plan: Patient is a 55 year old pleasant female with PMH of CRISTINA and depression presented to [facility] due to dyspnea and cough and was found to be Covid pneumonia. She was diagnosed with COVID-19 on 06/15/2021. She has received remdesivir, and is currently on decadron and baricitinib for COVID pneumonia treatment, currently on Vapotherm during days and CPAP on nights for CRISTINA. 1. Acute hypoxic respiratory failure, stable - Patient continue to be on vaportherm during the day to maintain oxygen saturation. she is saturating at 92% on vapotheram with 25L/min and FiO2 of 50. - Patient uses CPAP therapy overnight for CRISTINA. -S/p Remdesivir. Continue IV dexamethasone and baricitinib. -Oxygen therapy to maintain saturation>92%. Albuterol PRN -Continue incentive spirometry. Out of bed to chair 3 times a day. Continue with proning. -PT/OT evaluation and treatment 2. COVID-19 pneumonia -Patient did not receive COVID vaccination. Please see #1 for treatment. 3. CRISTINA. -Continue with CPAP use at night 3. Plaque psoriasis, improving -Continue betamethasone ointment. 4. Constipation -Continue with Colace and senna BID. Add on Miralax daily. 5. Leukocytosis likely 2/2 steroid use -patient denies cough or dyspnea; afebrile. -Monitor for signs for superimposed bacterial infection 6. Depression -Mood roughly stable -Continue home medication venlafaxine. DVT Prophylaxis: Lovenox SC Disposition: COVID pneumonia on Vapotherm. Pending clinical improvement and decreased oxygenation requirement VS,Fishbone, I+O VS, Fishbone, I+O Laboratory Tests 07/03/21 05:42 07/03/21 09:43 Vital Signs Date Time Temp Pulse Resp B/P (MAP) Pulse Ox O2 Delivery O2 Flow Rate FiO2 07/03/21 10:00 58 88 HVNI-Vapotherm 25.0 50 07/03/21 08:00 97.9 32 97/54 (68) I&O- Last 24 Hours up to 6 AM 07/03/21 06:00 Intake Total 2050 ml Output Total 2500 ml Balance -450 ml GME ATTESTATION GME ATTESTATION My faculty preceptor for this patient encounter was physically present during the encounter and was fully available. All aspects of the patient interview, examination, medical decision making process, and medical care plan development were reviewed and approved by the faculty preceptor. The faculty preceptor is aware and concurs with the plan as stated in the body of this note and will attest to such by his/her cosignature. ATTENDING NOTE I, Korey Tinoco MD, have independently examined this patient and performed my own physical exam, as well as reviewed the documentation and edited where necessary. I have discussed in detail with the resident / student the findings and plan of treatment as documented by the resident / student and edited their note. I agree with their findings and treatment plan and have edited their documentation. JOHANA JACKSON DO Jul 03, 2021 11:25 KOREY TINOCO MD Jul 10, 2021 12:30
[2021-07-03 12:00] VITALS: BP 149/75
[2021-07-03 16:00] VITALS: BP 111/62
[2021-07-03 20:00] VITALS: BP 109/66
[2021-07-03] MEDS: RAMELTEON 8 MG TAB (ROZEREM) PO SCH (20:01)
[2021-07-04] VITALS (7 sets, daily range): BP systolic 99–149; BP diastolic 54–80; O2SAT 94
--- NOTE | 2021-07-04 00:32 | ECGEPIP ---
[facility] Test Date: 2021-07-03 Pat Name: ЕКАТЕРИНА JACOBO Department: Room: [place] [address] Gender: Female Mandrel Cleaner: ashwin : 1965 Requested By: JOHANA JACKSON Order Number: [id number] Reading MD: Colt Carter Measurements Intervals [place] Rate: 56 P: 61 AR: 138 QRS: 35 QRSD: 86 T: 39 QT: 440 QTc: 424 Interpretive Statements Sinus bradycardia Last tracing on 06/26/21 at 21:45. No remarkable changes but slower heart rate Electronically Signed on 07-04-2021 0:32:30 EDT by Colt Carter
[2021-07-04 08:08] LABS: BASO % 0.2 % (0.0-1.0); EOS # 0.2 10^3/uL (0.0-0.5); HEMATOCRIT 38.6 % (36.0-47.0); HEMOGLOBIN 12.4 g/dl (12.0-15.5); LYMPH # 0.8 10^3/uL (1.5-5.0); LYMPH % 4.2 % (24.0-44.0); MEAN CORPUSCULAR HEMOGLOBIN 28.9 pg (27.0-33.0); MEAN CORPUSCULAR HGB CONC 32.1 g/dl (32.0-36.5); MONO # 0.8 10^3/uL (0.0-0.8); MONO % 4.4 % (2.0-8.0); NEUTROPHILS # 16.2 10^3/uL (1.5-8.5); NEUTROPHILS % 88.2 % (36.0-66.0); PLATELET COUNT, AUTOMATED 350 10^3/uL (150-450); RED BLOOD COUNT 4.29 10^6/uL (4.00-5.40); WHITE BLOOD COUNT 18.4 10^3/uL (4.0-10.0)
[2021-07-04 08:45] LABS: ALBUMIN 1.9 GM/DL (3.2-5.2); ALT/SGPT 16 U/L (12-78); BILIRUBIN,TOTAL 0.3 MG/DL (0.2-1.0); BLOOD UREA NITROGEN 20 MG/DL (7-18); CALCIUM LEVEL 8.4 MG/DL (8.5-10.1); CARBON DIOXIDE LEVEL 29 MEQ/L (21-32); CHLORIDE LEVEL 105 MEQ/L (98-107); CREATININE FOR GFR 0.49 MG/DL (0.55-1.30); GLOMERULAR FILTRATION RATE > 60.0 (>51); GLUCOSE, FASTING 93 MG/DL (70-100); SODIUM LEVEL 138 MEQ/L (136-145); TOTAL PROTEIN 5.4 GM/DL (6.4-8.2)
[2021-07-04] MEDS: VENLAFAXINE **XR** 75MG CAPSULE PO SCH (08:46)
[2021-07-04] MEDS: SENNA 8.6 MG TAB (SENOKOT) PO SCH ×2 (08:47→20:25)
[2021-07-04] MEDS: DOCUSATE SODIUM 100MG CAPSULE PO SCH ×2 (08:47→20:25)
[2021-07-04] MEDS: ASPIRIN 81MG ENTERIC TABLET PO SCH (08:47)
[2021-07-04] MEDS: BARICITINIB 2MG TABLET (OLUMIANT) FOR EUA PO SCH (08:47)
[2021-07-04] MEDS: ENOXAPARIN 40MG/0.4ML SYRINGE (J1650 PER 10MG) SC SCH (08:48)
[2021-07-04] MEDS: dexameTHASONE 4 MG/ML 1ML VIAL (J1100 PER 1MG) IV SCH (08:48)
[2021-07-04] MEDS: BETAMETHASONE DIP 0.05% OINT 15 GM TOP SCH ×2 (08:49→20:28)
[2021-07-04] MEDS: MIRALAX *UNIT DOSE* 17GM PACKET PO SCH (09:00)
--- NOTE | 2021-07-04 12:12 | IPNPDOC ---
Text Note Date of Service The patient was seen on 07/04/21. NOTE HPI: Ms. Garibay is a pleasant 55 year-old female who was admitted to [facility] due to COIVD pneumonia. She continues to deny any dyspnea, coughing, chest pain, palpitation, fever, chills, or abdominal pain. ROS: General: Denies fever or chills HEENT: Denies headaches Heart: Denies any chest pain or palpitation Lungs: Denies any dyspnea or coughing GI: Denies abdominal pain, nausea, or vomiting Extremities: Patient denies pain in extremities Physical exam: General: Alert and oriented appropriate age wearing CPAP laying on bed. Does not appear to be in acute distress. HEENT: Normocephalic, atraumatic, mucous membrane moist and pink. Neck: Supple Cardiac: Regular rhythm,mild bradycardia, no murmurs, normal S1, normal S2 Pulmonary: Clear to auscultation bilaterally. No wheezing, rhonchi, rales auscultated. Minimal accessory muscle use. Abdomen: Bowel sound auscultated in all 4 quadrants, no-distention, no guarding, and no tenderness upon palpation. Extremities: No obvious edema in bilateral lower extremities Skin: Scaly plaques/patches in bilateral anterior meyer without drainage or bleeding. Labs: Please see below Imaging: CXR 07/03/2021 showed "Radiographic progression of extensive bilateral interstitial pneumonitis." CTA chest 06/26/2021 showed "No pulmonary embolism. Extensive ground-glass opacifications in bilateral lungs consistent with patient's history of COVID-19 infection." CXR 06/26/2021 showed "Mild cardiomegaly with diffuse mixed mild interstitial and alveolar infiltrates." Assessment and plan: Patient is a 55 year-old pleasant female with PMH of depression presented to [facility] due to dyspnea and cough and was found to be COVID positive. She was sick for about 2 weeks prior to coming to the hospital. She was diagnosed with COVID-19 on 06/15/2021. No prior covid-19 vaccination. She had received Remdesivir, and is currently on decadron and baricitinib for COVID pneumonia treatment. 1. Acute hypoxic respiratory failure, stable. - Patient continue to be on vaportherm during the day, she is saturating at 94% on vapotheram with 25L/min and FiO2 of 50. Patient uses CPAP therapy overnight for CRISTINA. -S/p Remdesivir. Continue IV dexamethasone and baricitinib. -Oxygen therapy to maintain saturation>92%. Albuterol PRN -Continue incentive spirometry. Out of bed to chair 3 times a day. Continue with proning. PT/OT evaluation and treatment 2. COVID-19 pneumonia. -Patient did not receive COVID vaccination. Treatment for acute hypoxic respiratory failure. 3. CRISTINA -Continue with CPAP therapy at night 4. Plaque psoriasis, improving. -Continue betamethasone ointment. 5. Constipation. - Colace, senna, and Miralax BID. 6. Leukocytosis likely 2/2 steroid use. -Procalcitonin negative. Monitor for signs for superimposed bacterial infection. -Continues to be afebrile; denies any cough or dyspnea 7. Depression. - Continue home medication venlafaxine. DVT Prophylaxis: SC Lovenox 40mg QD Disposition: COVID pneumonia on Vapotherm during days; CPAP on nights for CRISTINA. Pending clinical improvement VS,Minerva, I+O VS, Minerva, I+O Laboratory Tests 07/04/21 07:34 Vital Signs Date Time Temp Pulse Resp B/P (MAP) Pulse Ox O2 Delivery O2 Flow Rate FiO2 07/04/21 09:57 94 HVNI-Vapotherm 25.0 50 07/04/21 04:00 97.3 51 26 149/80 (103) I&O- Last 24 Hours up to 6 AM 07/04/21 06:00 Intake Total 900 ml Output Total 1150 ml Balance -250 ml GME ATTESTATION E ATTESTATION My faculty preceptor for this patient encounter was physically present during the encounter and was fully available. All aspects of the patient interview, examination, medical decision making process, and medical care plan development were reviewed and approved by the faculty preceptor. The faculty preceptor is aware and concurs with the plan as stated in the body of this note and will attest to such by his/her cosignature. ATTENDING NOTE I saw and evaluated the patient. I agree with the findings and the plan of care as documented in the resident's note JOHANA JACKSON DO Jul 04, 2021 12:12 DEMETRA ARTEAGA DO Jul 04, 2021 19:11
[2021-07-04] MEDS ORDERED: ACETAMINOPHEN TAB 650MG DOSE (2X325MG) PO ONE (14:40)
[2021-07-04] MEDS: RAMELTEON 8 MG TAB (ROZEREM) PO SCH (20:25)
[2021-07-05] VITALS (9 sets, daily range): BP systolic 94–127; BP diastolic 50–63; O2SAT 89–96
[2021-07-05 04:35] LABS: BASO % 0.2 % (0.0-1.0); EOS % 0.2 % (0.0-3.0); HEMATOCRIT 38.3 % (36.0-47.0); HEMOGLOBIN 12.5 g/dl (12.0-15.5); LYMPH # 0.7 10^3/uL (1.5-5.0); MEAN CORPUSCULAR HEMOGLOBIN 29.3 pg (27.0-33.0); MEAN CORPUSCULAR HGB CONC 32.6 g/dl (32.0-36.5); MEAN CORPUSCULAR VOLUME 89.9 fl (80.0-96.0); MONO # 0.7 10^3/uL (0.0-0.8); MONO % 3.8 % (2.0-8.0); NEUTROPHILS # 15.9 10^3/uL (1.5-8.5); NEUTROPHILS % 90.2 % (36.0-66.0); PLATELET COUNT, AUTOMATED 431 10^3/uL (150-450); RED BLOOD COUNT 4.26 10^6/uL (4.00-5.40); WHITE BLOOD COUNT 17.6 10^3/uL (4.0-10.0)
[2021-07-05 04:53] LABS: ALT/SGPT 17 U/L (12-78); BILIRUBIN,TOTAL 0.3 MG/DL (0.2-1.0); BLOOD UREA NITROGEN 19 MG/DL (7-18); CALCIUM LEVEL 8.4 MG/DL (8.5-10.1); CARBON DIOXIDE LEVEL 29 MEQ/L (21-32); CHLORIDE LEVEL 104 MEQ/L (98-107); CREATININE FOR GFR 0.46 MG/DL (0.55-1.30); GLOMERULAR FILTRATION RATE > 60.0 (>51); GLUCOSE, FASTING 121 MG/DL (70-100); SODIUM LEVEL 137 MEQ/L (136-145); TOTAL PROTEIN 5.7 GM/DL (6.4-8.2)
[2021-07-05] MEDS: ASPIRIN 81MG ENTERIC TABLET PO SCH (08:56)
[2021-07-05] MEDS: DOCUSATE SODIUM 100MG CAPSULE PO SCH ×2 (08:56→21:03)
[2021-07-05] MEDS: VENLAFAXINE **XR** 75MG CAPSULE PO SCH (08:57)
[2021-07-05] MEDS: MIRALAX *UNIT DOSE* 17GM PACKET PO SCH (08:58)
[2021-07-05] MEDS: BARICITINIB 2MG TABLET (OLUMIANT) FOR EUA PO SCH (08:59)
[2021-07-05] MEDS: SENNA 8.6 MG TAB (SENOKOT) PO SCH ×2 (09:00→21:03)
[2021-07-05] MEDS: dexameTHASONE 4 MG/ML 1ML VIAL (J1100 PER 1MG) IV SCH (09:00)
[2021-07-05] MEDS: ENOXAPARIN 40MG/0.4ML SYRINGE (J1650 PER 10MG) SC SCH (09:00)
[2021-07-05] MEDS: BETAMETHASONE DIP 0.05% OINT 15 GM TOP SCH ×2 (09:02→23:40)
--- NOTE | 2021-07-05 15:14 | IPNPDOC ---
Subjective Date Seen The patient was seen on 07/05/21. Subjective Chief Complaint/HPI Mrs. Garibay is a 55 year old female with depression who is here with acute hypoxic respiratory failure secondary to COVID pneumonia. Yesterday she is weaned down to 4 L nasal cannula and continues to maintain 4 L nasal cannula overnight. This morning, she is feeling better. Dyspnea improved. Denies any chest pain or abdominal pain. Otherwise this morning IV access was lost. Only IV medication was dexamethasone. We will switch dexamethasone from IV to p.o. We will taper dexamethasone. Objective Physical Examination General Exam: Positive: Alert, Cooperative Eye Exam: Positive: EOMI Neck Exam: Positive: Supple Chest Exam: Positive: Clear to auscultation Heart Exam: Positive: Rate Normal, Regular Rhythm Abdomen Exam: Positive: Normal bowel sounds, Soft Neuro Exam: Positive: Normal Speech Psych Exam: Positive: Mental status NL, Mood NL Assessment /Plan Assessment Mrs. Garibay is a 55 year old female with depression who is here with acute hypoxic respiratory failure secondary to COVID pneumonia. Patient was on Vapotherm and CPAP prior. She completed remdesivir course and is now on bar icitinib. She was weaned off Vapotherm on 07/04/2021 and has maintained oxygenation on 4 L nasal cannula. Continue with current regimen and continue weaning oxygen as tolerated. Plan/VTE VTE Prophylaxis Ordered?: Yes Plan 1. Acute hypoxic respiratory failure Patient required Vapotherm and CPAP Improved, now weaned down to 4 L nasal cannula Continue to wean as tolerated 2. Covid pneumonia Patient did not receive Covid vaccination Tested positive for Covid on 06/15/2021 Procalcitonin negative Completed remdesivir Continue baricitinib and p.o. dexamethasone taper Continue incentive spirometry, proning, and activity as tolerated 3. CRISTINA Continue nocturnal CPAP 4. Plaque psoriasis Continue topical steroids 5. Constipation Continue Colace, senna, and MiraLAX 6. Insomnia Continue ramelteon 7. Depression Continue venlafaxine 8. DVT prophylaxis in the setting of Covid infection Continue aspirin and Lovenox Disposition: Pending clinical improvement VS, I&O, 24H, Fishbone Vital Signs/I&O Vital Signs Date Time Temp Pulse Resp B/P (MAP) Pulse Ox O2 Delivery O2 Flow Rate FiO2 07/05/21 12:00 98.0 66 16 105/59 (74) 88 Nasal Cannula 4.0 07/04/21 12:00 45 I&O- Last 24 Hours up to 6 AM 07/05/21 06:00 Intake Total 800 ml Output Total 1350 ml Balance -550 ml Laboratory Data 24H LABS Laboratory Tests 2 07/05/21 04:09: Immature Granulocyte % (Auto) 1.6, Neutrophils (%) (Auto) 90.2H, Lymphocytes (%) (Auto) 4.0L, Monocytes (%) (Auto) 3.8, Eosinophils (%) (Auto) 0.2, Basophils (%) (Auto) 0.2, Neutrophils # (Auto) 15.9H, Lymphocytes # (Auto) 0.7L, Monocytes # (Auto) 0.7, Eosinophils # (Auto) 0.0, Basophils # (Auto) 0.0, Nucleated Red Blood Cells % (auto) 0.0, Anion Gap 4L, Glomerular Filtration Rate > 60.0, Calcium Level 8.4L, Total Bilirubin 0.3, Aspartate Amino Transf (AST/SGOT) 9, Alanine Aminotransferase (ALT/SGPT) 17, Alkaline Phosphatase 49, Total Protein 5.7L, Albumin 2.0L, Albumin/Globulin Ratio 0.5L CBC/BMP Laboratory Tests 07/05/21 04:09 Microbiology Microbiology 06/27/21 Blood Culture - Final, Complete NO GROWTH AFTER 5 DAYS 06/27/21 Blood Culture - Final, Complete NO GROWTH AFTER 5 DAYS DEMETRA ARTEAGA DO Jul 05, 2021 15:14
[2021-07-05] MEDS: RAMELTEON 8 MG TAB (ROZEREM) PO SCH (21:03)
[2021-07-06] VITALS (18 sets, daily range): BP systolic 103–153; BP diastolic 53–73; O2SAT 87–99
[2021-07-06 08:31] LABS: BASO % 0.2 % (0.0-1.0); HEMATOCRIT 41.5 % (36.0-47.0); HEMOGLOBIN 13.3 g/dl (12.0-15.5); LYMPH # 0.7 10^3/uL (1.5-5.0); LYMPH % 4.7 % (24.0-44.0); MEAN CORPUSCULAR VOLUME 90.4 fl (80.0-96.0); MONO # 0.6 10^3/uL (0.0-0.8); MONO % 3.8 % (2.0-8.0); NEUTROPHILS # 14.3 10^3/uL (1.5-8.5); NEUTROPHILS % 89.9 % (36.0-66.0); PLATELET COUNT, AUTOMATED 385 10^3/uL (150-450); RED BLOOD COUNT 4.59 10^6/uL (4.00-5.40); WHITE BLOOD COUNT 15.9 10^3/uL (4.0-10.0)
[2021-07-06 08:55] LABS: ALBUMIN 2.1 GM/DL (3.2-5.2); ALT/SGPT 19 U/L (12-78); BILIRUBIN,TOTAL 0.3 MG/DL (0.2-1.0); BLOOD UREA NITROGEN 19 MG/DL (7-18); CALCIUM LEVEL 8.9 MG/DL (8.5-10.1); CARBON DIOXIDE LEVEL 31 MEQ/L (21-32); CHLORIDE LEVEL 101 MEQ/L (98-107); GLOMERULAR FILTRATION RATE > 60.0 (>51); GLUCOSE, FASTING 114 MG/DL (70-100); POTASSIUM SERUM 4.5 MEQ/L (3.5-5.1); SODIUM LEVEL 136 MEQ/L (136-145); TOTAL PROTEIN 6.7 GM/DL (6.4-8.2)
[2021-07-06] MEDS: SENNA 8.6 MG TAB (SENOKOT) PO SCH ×2 (09:13→20:13)
[2021-07-06] MEDS: DOCUSATE SODIUM 100MG CAPSULE PO SCH ×2 (09:13→20:14)
[2021-07-06] MEDS: ASPIRIN 81MG ENTERIC TABLET PO SCH (09:13)
[2021-07-06] MEDS: MIRALAX *UNIT DOSE* 17GM PACKET PO SCH (09:13)
[2021-07-06] MEDS: BARICITINIB 2MG TABLET (OLUMIANT) FOR EUA PO SCH (09:14)
[2021-07-06] MEDS: VENLAFAXINE **XR** 75MG CAPSULE PO SCH (09:14)
[2021-07-06] MEDS: ENOXAPARIN 40MG/0.4ML SYRINGE (J1650 PER 10MG) SC SCH (09:15)
--- NOTE | 2021-07-06 14:32 | IPNPDOC ---
Text Note Date of Service The patient was seen on 07/06/21. NOTE HPI: Ms. Garibay is a pleasant 55 year-old female who was admitted to [facility] on 06/27/2021 due to COIVD pneumonia. She continues to be on 4L nasal cannula. It was noted that the patient had 2 episodes of desaturation this morning. She did not have CPAP yesterday. She no longer has constipation, said she had 2 bowel movements yesterday. She continues to deny any dyspnea, coughing, chest pain, palpitation, fever, chills, or abdominal pain. ROS: General: Denies fever or chills HEENT: Denies headaches Heart: Denies any chest pain or palpitation Lungs: Denies any dyspnea or coughing GI: Denies abdominal pain, nausea, or vomiting. Denies constipation Extremities: Patient denies pain in extremities Physical exam: General: Alert and oriented appropriate age wearing CPAP laying on bed. Does not appear to be in acute distress. HEENT: Normocephalic, atraumatic, mucous membrane moist and pink. Neck: Supple Cardiac: Regular rate and rhythm, no murmurs, normal S1, normal S2 Pulmonary: Clear to auscultation bilaterally. No wheezing, rhonchi, rales auscultated. Minimal accessory muscle use. Abdomen: Bowel sound auscultated in all 4 quadrants, no-distention, no guarding, and no tenderness upon palpation. Extremities: No obvious edema in bilateral lower extremities Skin: Scaly plaques/patches in bilateral anterior meyer without drainage or bleeding. Labs: Please see below Imaging: CXR 07/03/2021 showed "Radiographic progression of extensive bilateral interstitial pneumonitis." CTA chest 06/26/2021 showed "No pulmonary embolism. Extensive ground-glass opacifications in bilateral lungs consistent with patient's history of COVID-19 infection." CXR 06/26/2021 showed "Mild cardiomegaly with diffuse mixed mild interstitial and alveolar infiltrates." Assessment and plan: Patient is a 55 year-old pleasant female with PMH of depression presented to [facility] due to dyspnea and cough and was found to be COVID positive. She was sick for about 2 weeks prior to coming to the hospital. She was diagnosed with COVID-19 on 06/15/2021. No prior COVID-19 vaccination. She had received Remdesivir, and is currently on PO decadron and baricitinib for COVID pneumonia treatment; now on 4L NC oxygenation. 1. Acute hypoxic respiratory failure, stable. - Patient continue to be on vaportherm during the day, she is saturating at 94% on vapotheram with 25L/min and FiO2 of 50. Patient uses CPAP therapy overnight for CRISTINA. -S/p Remdesivir. Continue baricitinib. S/p IV dexamethasone. Continue PO Dexamethasone, plan to gradually down-titrate PO dexamethasone when oxygen requirement improves. -Oxygen therapy to maintain saturation>92%. Albuterol PRN -Continue incentive spirometry. Out of bed to chair 3 times a day. Continue with proning. PT/OT evaluation and treatment 2. COVID-19 pneumonia. -Patient did not receive COVID vaccination. Treatment for acute hypoxic respiratory failure. 3. CRISTINA -Discussed with staff to ensure CPAP therapy nightly 4. Plaque psoriasis, improving. -Continue betamethasone ointment. 5. Constipation, resolved - Colace, senna, and Miralax BID. -May decrease bowel regimen if patient continues to have no concerns for constipation 6. Leukocytosis likely 2/2 steroid use. -Procalcitonin negative. Monitor for signs for superimposed bacterial infection. -Continues to be afebrile; denies any cough or dyspnea 7. Depression. - Continue home medication venlafaxine. DVT Prophylaxis: SC Lovenox 40mg QD Disposition: COVID pneumonia on 4L NC during days. Pending clinical improvement. Anticipate one more night of stay VS,Fishbone, I+O VS, Fishbone, I+O Laboratory Tests 07/06/21 07:47 Vital Signs Date Time Temp Pulse Resp B/P (MAP) Pulse Ox O2 Delivery O2 Flow Rate FiO2 07/06/21 14:00 96.4 65 18 103/53 (70) 93 Nasal Cannula 4.0 07/04/21 12:00 45 I&O- Last 24 Hours up to 6 AM 07/06/21 06:00 Intake Total 1060 ml Output Total 900 ml Balance 160 ml GME ATTESTATION GME ATTESTATION My faculty preceptor for this patient encounter was physically present during the encounter and was fully available. All aspects of the patient interview, examination, medical decision making process, and medical care plan development were reviewed and approved by the faculty preceptor. The faculty preceptor is aware and concurs with the plan as stated in the body of this note and will attest to such by his/her cosignature. ATTENDING NOTE I, Korey Tinoco MD, have independently examined this patient and performed my own physical exam, as well as reviewed the documentation and edited where necessary. I have discussed in detail with the resident / student the findings and plan of treatment as documented by the resident / student and edited their note. I agree with their findings and treatment plan and have edited their documentation. JOHANA JACKSON DO Jul 06, 2021 14:32 KOREY TINOCO MD Jul 10, 2021 12:33
[2021-07-06] MEDS: RAMELTEON 8 MG TAB (ROZEREM) PO SCH (20:14)
[2021-07-07] VITALS (10 sets, daily range): BP systolic 132–154; BP diastolic 66–88; O2SAT 85–95
[2021-07-07] MEDS: DOCUSATE SODIUM 100MG CAPSULE PO SCH ×2 (08:36→21:43)
[2021-07-07] MEDS: ASPIRIN 81MG ENTERIC TABLET PO SCH (08:36)
[2021-07-07] MEDS: VENLAFAXINE **XR** 75MG CAPSULE PO SCH (08:37)
[2021-07-07] MEDS: BARICITINIB 2MG TABLET (OLUMIANT) FOR EUA PO SCH (08:37)
[2021-07-07] MEDS: MIRALAX *UNIT DOSE* 17GM PACKET PO SCH (08:38)
[2021-07-07] MEDS: ENOXAPARIN 40MG/0.4ML SYRINGE (J1650 PER 10MG) SC SCH (08:38)
[2021-07-07] MEDS: SENNA 8.6 MG TAB (SENOKOT) PO SCH ×2 (08:38→21:00)
--- NOTE | 2021-07-07 12:15 | IPNPDOC ---
Text Note Date of Service The patient was seen on 07/07/21. NOTE HPI: Ms. Garibay is a pleasant 55 year-old female who was admitted to [facility] on 06/27/2021 due to COVID pneumonia. She has been down-titrated to 3L nasal cannula. It was noted patient desated to 73% for about 3 minutes while ambulating. She continues to deny any dyspnea, chest pain, palpitation, fever, chills, or abdominal pain. She said she has some coughing with yellow color sputum. She did not have CPAP yesterday. ROS: General: Denies fever or chills HEENT: Denies headaches Heart: Denies any chest pain or palpitation Lungs: Denies any dyspnea. Positive for productive cough GI: Denies abdominal pain, nausea, or vomiting. Denies constipation Extremities: Patient denies pain in extremities Physical exam: General: Alert and oriented appropriate age wearing CPAP laying on bed. Does not appear to be in acute distress. HEENT: Normocephalic, atraumatic, mucous membrane moist and pink. Neck: Supple Cardiac: Regular rate and rhythm, no murmurs, normal S1, normal S2 Pulmonary: Clear to auscultation bilaterally. No wheezing, rhonchi, rales auscultated. No accessory muscle use. Abdomen: Bowel sound auscultated in all 4 quadrants, no-distention, no guarding, and no tenderness upon palpation. Extremities: No obvious edema in bilateral lower extremities Skin: Scaly plaques/patches in bilateral anterior meyer without drainage or bleeding. Labs: Please see below Imaging: CXR 07/03/2021 showed "Radiographic progression of extensive bilateral interstitial pneumonitis." CTA chest 06/26/2021 showed "No pulmonary embolism. Extensive ground-glass opacifications in bilateral lungs consistent with patient's history of COVID-19 infection." CXR 06/26/2021 showed "Mild cardiomegaly with diffuse mixed mild interstitial and alveolar infiltrates." Assessment and plan: Patient is a 55 year-old pleasant female with PMH of depression presented to [facility] due to dyspnea and cough and was found to be COVID positive. She was sick for about 2 weeks prior to coming to the hospital. She was diagnosed with COVID-19 on 06/15/2021. No prior COVID-19 vaccination. She had received Remdesivir, and is currently on PO decadron and baricitinib for COVID pneumonia treatment; now on 3L NC oxygenation. 1. Acute hypoxic respiratory failure, stable. - Patient has been down-titrate to 3L oxygen and she is saturating at around 95% on on 3L oxygen. -CPAP inpatient -S/p Remdesivir. Continue baricitinib. S/p IV dexamethasone. Down titrate PO De xamethasone to 2mg PO daily, plan to gradually down-titrate PO dexamethasone: 2mg for 4 days then 2mg every other day for 4 days. -Oxygen therapy to maintain saturation>92%. Albuterol PRN -Continue incentive spirometry. Out of bed to chair 3 times a day. Continue with proning. 2. COVID-19 pneumonia. -Patient did not receive COVID vaccination. Treatment for acute hypoxic respirat ory failure. 3. CRISTINA -Discussed with staff to ensure CPAP therapy nightly -CPAP inpatient with setting=10 4. Plaque psoriasis, improving. -Continue betamethasone ointment. 5. Leukocytosis likely 2/2 steroid use. -Procalcitonin negative. Monitor for signs for superimposed bacterial infection. -Continues to be afebrile; denies any cough or dyspnea 7. Depression. - Continue home medication venlafaxine. DVT Prophylaxis: SC Lovenox 40mg QD Disposition: COVID pneumonia on 3L NC during days. Desats during ambulation. Anticipate one more night of stay VS,Fishbone, I+O VS, Fishbone, I+O Vital Signs Date Time Temp Pulse Resp B/P (MAP) Pulse Ox O2 Delivery O2 Flow Rate FiO2 07/07/21 08:00 3.0 07/07/21 06:19 96.9 52 16 136/73 (94) 92 Nasal Cannula 07/04/21 12:00 45 I&O- Last 24 Hours up to 6 AM 07/07/21 05:59 Intake Total 690 ml Balance 690 ml GME ATTESTATION GME ATTESTATION My faculty preceptor for this patient encounter was physically present during the encounter and was fully available. All aspects of the patient interview, examination, medical decision making process, and medical care plan development were reviewed and approved by the faculty preceptor. The faculty preceptor is aware and concurs with the plan as stated in the body of this note and will attest to such by his/her cosignature. ATTENDING NOTE I, Korey Tinoco MD, have independently examined this patient and performed my own physical exam, as well as reviewed the documentation and edited where nec essary. I have discussed in detail with the resident / student the findings and plan of treatment as documented by the resident / student and edited their note. I agree with their findings and treatment plan and have edited their documentation. JOHANA JACKSON DO Jul 07, 2021 12:15 KOREY TINOCO MD Jul 10, 2021 14:47
[2021-07-07] MEDS: RAMELTEON 8 MG TAB (ROZEREM) PO SCH (21:43)
[2021-07-08 06:30] VITALS: BP 141/66
[2021-07-08 08:00] VITALS: O2SAT 91
[2021-07-08] MEDS: MIRALAX *UNIT DOSE* 17GM PACKET PO SCH (09:00)
[2021-07-08] MEDS: SENNA 8.6 MG TAB (SENOKOT) PO SCH (11:19)
[2021-07-08] MEDS: DOCUSATE SODIUM 100MG CAPSULE PO SCH (11:20)
[2021-07-08] MEDS: VENLAFAXINE **XR** 75MG CAPSULE PO SCH (11:20)
[2021-07-08] MEDS: ENOXAPARIN 40MG/0.4ML SYRINGE (J1650 PER 10MG) SC SCH (11:20)
[2021-07-08] MEDS: ASPIRIN 81MG ENTERIC TABLET PO SCH (11:20)
[2021-07-08] MEDS ORDERED: VENTAER INH (12:39)
[2021-07-08] MEDS ORDERED: DOCU100C16 PO (12:39)
[2021-07-08] MEDS ORDERED: DEXA2TA PO (12:39)
[2021-07-08] MEDS ORDERED: MIRA1POW3 PO (12:39)
[2021-07-08] MEDS ORDERED: ASPI-551 PO (12:39)
[2021-07-08] MEDS: BARICITINIB 2MG TABLET (OLUMIANT) FOR EUA PO SCH (12:41)
--- NOTE | 2021-07-08 12:54 | DS.PDOC ---
Discharge Summary General Date of Admission Jun 27, 2021 at 01:20 Date of Discharge 06/27/2021 Attending Physician: KOREY BLEVINS MD Discharge Summary PROCEDURES PERFORMED DURING STAY: Vapotherm and inpatient CPAP ADMITTING DIAGNOSES: 1. Covid pneumonia 2. Depression DISCHARGE DIAGNOSES: 1. Acute hypoxic respiratory failure, stable. 2. COVID-19 pneumonia. 3. CRISTINA 4. Plaque psoriasis, improving. 5. Leukocytosis likely 2/2 steroid use. 6. Depression. COMPLICATIONS/CHIEF COMPLAINT: Covid, Hypoxia. HISTORY OF PRESENT ILLNESS: Ms. Garibay is a pleasant 55 year-old female who presented to [facility] due to dyspnea for about a week as well cough. She was not vaccinated with COVID. She had travel history of [place] and [place] about 1 month ago. Her sick contact includes daughter and son in-law who was also tested positive for COVID on 06/15/2021. She also have fever, chills, some nausea without vomiting, as well as lethargy. Her symptoms progressively worsened. HOSPITAL COURSE: It was noted that her oxygen saturation desaturated to 85% to room air. She initially required only 2L of nasal cannula for oxygenation. Her CTA chest showed extensive ground-glass opacifications in bilateral lungs consistent with COVID infection. She was admitted to the hospital and was started on Remdesivir, Bactiricinib, and Dexamethasone. She had required vapotherm during day times for oxygen therapy, but gradually was down-titrated to nasal cannula. She had inpatient CPAP during hospitalization. On the day of discharge, she said that she has some coughing with yellow color sputum. She denies dyspnea, chest pain, palpitation, fever, chills, or abdominal pain, and was determined ready for discharge home with continuous 3L nasal cannula oxygen therapy as well as dexamethasone taper. DISCHARGE MEDICATIONS: Please see below. ALLERGIES: Please see below. PHYSICAL EXAMINATION ON DISCHARGE: VITAL SIGNS: Please see below. General: Alert and oriented, pleasant, wearing nasal cannula on bed. Does not appear to be in acute distress. HEENT: Normocephalic, atraumatic, mucous membrane moist and pink. Neck: Supple Cardiac: Regular rate and rhythm, no murmurs, normal S1, normal S2 Pulmonary: Clear to auscultation bilaterally. No wheezing, rhonchi, rales auscultated. No labored breathing or accessory muscle use. Abdomen: Bowel sound auscultated in all 4 quadrants. No distention or guarding, and no tenderness upon palpation. Extremities: No obvious edema in bilateral lower extremities. No bilateral calf tenderness or erythema. LABORATORY DATA: Please see below. IMAGING: CXR 07/03/2021 showed "Radiographic progression of extensive bilateral interstitial pneumonitis." CTA 06/26/2021 showed "No pulmonary embolism.Extensive ground-glass opacifications in bilateral lungs consistent with patient's history of COVID-19 infection." CXR 06/26/2021 showed "Mild cardiomegaly with diffuse mixed mild interstitial and alveolar infiltrates." PROGNOSIS: Fair ACTIVITY: [As tolerated]. DIET: Regular diet DISCHARGE INSTRUCTION AND PLAN: Please take medications as prescribed. Please follow up with primary care provider in one week. Please return to the hospital if symptoms worsen. ITEMS TO FOLLOWUP ON ON OUTPATIENT: 1. COVID pneumonia DISCHARGE CONDITION: [Improved]. TIME SPENT ON DISCHARGE: 35 minutes. Vital Signs/I&Os Vital Signs Date Time Temp Pulse Resp B/P (MAP) Pulse Ox O2 Delivery O2 Flow Rate FiO2 07/08/21 06:30 97.0 74 16 141/66 (91) 95 NIPPV (BIPAP/CPAP) 6.0 07/04/21 12:00 45 I&O- Last 24 Hours up to 6 AM 07/08/21 06:00 Intake Total 840 ml Output Total 200 ml Balance 640 ml Discharge Medications Scheduled Aspirin (Aspirin EC) 81 Mg Tablet.dr, 81 MG PO DAILY Dexamethasone (Dexamethasone) 2 Mg Tablet, 2 MG PO ASDIRECTED Please take 2mg daily for 3 days, followed by 2mg every other day for 4 days. Docusate Sodium (Docusate Sodium) 100 Mg Capsule, 100 MG PO BIDP for CONSTIPATION Venlafaxine HCl (Effexor Xr) 150 Mg Cap, 150 MG PO DAILY, (Reported) take with venlafaxine er 75mg cap daily verified with patient Venlafaxine HCl (Venlafaxine HCl ER) 75 Mg Cap.er.24h, 75 MG PO DAILY, (Reported) take with venlafaxine xr 150mg cap daily verified with patient Scheduled PRN Albuterol Sulfate (Ventolin Hfa) 18 Gm Hfa.aer.ad, 2 PUFF INH Q4HP PRN for SHORTNESS OF BREATH Polyethylene Glycol 3350 (Miralax) 17 Gm Powd.pack, 1 PKT PO DAILYPRN PRN for CONSTIPATION Miscellaneous Medications Levonorgestrel (Mirena) 1 Each Iud, 20 MCG IU, (Reported) verified with patient Allergies Coded Allergies: nylon (Verified Allergy, Intermediate, rash, 05/10/19) GME ATTESTATION GME ATTESTATION My faculty preceptor for this patient encounter was physically present during the encounter and was fully available. All aspects of the patient interview, examination, medical decision making process, and medical care plan development were reviewed and approved by the faculty preceptor. The faculty preceptor is aware and concurs with the plan as stated in the body of this note and will attest to such by his/her cosignature. ATTENDING NOTE I, Korey Blevins MD, have independently examined this patient and performed my own physical exam, as well as reviewed the documentation and edited where necessary. I have discussed in detail with the resident / student the findings and plan of treatment as documented by the resident / student and edited their note. I agree with their findings and treatment plan and have edited their documentation. Total time spent on this discharge including coordination of care, review of chart and actual documentation is around 35 minutes JOHANA JACKSON DO Jul 08, 2021 12:54 KOREY BLEVINS MD Jul 10, 2021 14:48
[2021-07-08 14:00] VITALS: BP 90/58; O2SAT 91
== END 2021-07-08 15:57 | disposition home health service (06) | DRG 177 ==
LOC: M ED 18:02 → EDBD 18:02 → M ED INP 06-27 01:20 → M ICU 06-27 02:29 → M 4MAIN 07-05 15:20
PROVIDERS: ADMIT Internal Medicine; ATTEND Internal Medicine
PROC: XW033E5 Introduction of Remdesivir Anti-infective into Peripheral Vein, Percutaneous Approach, New Technology Group 5 (ICD-10-PCS; principal; 2021-06-27)
PROC: 3E0333Z Introduction of Anti-inflammatory into Peripheral Vein, Percutaneous Approach (ICD-10-PCS; 2021-06-27)
DX: U07.1 COVID-19 (principal); J12.82 Pneumonia due to coronavirus disease 2019; J96.01 Acute respiratory failure with hypoxia; F32.9 Major depressive disorder, single episode, unspecified; L40.0 Psoriasis vulgaris; K59.00 Constipation, unspecified; E87.5 Hyperkalemia; G47.33 Obstructive sleep apnea (adult) (pediatric); D72.829 Elevated white blood cell count, unspecified; Z79.899 Other long term (current) drug therapy; Z87.891 Personal history of nicotine dependence

== ENCOUNTER 2021-10-15 12:33 | Emergency (ER) | payer OTHER ==
[~2021-10-15 12:33] MED LIST changes: +ASPI-551 PO; +DEXA2TA PO; +DOCU100C16 PO; +MIRA1POW3 PO; +VENL75CA2 PO; +VENTAER INH; +tylenol PO
[2021-10-15] MEDS ORDERED: CALC0.004 (12:54)
[2021-10-15 16:08] VITALS: BP 169/94
== END 2021-10-15 16:10 | disposition home or self-care (01) ==
LOC: M ED 12:33
DX: S80.12XA Contusion of left lower leg, initial encounter (principal); W23.0XXA Caught, crushed, jammed, or pinched between moving objects, initial encounter; Y92.9 Unspecified place or not applicable; Y93.89 Activity, other specified; Y99.9 Unspecified external cause status; Z79.82 Long term (current) use of aspirin; Z79.899 Other long term (current) drug therapy; Z79.3 Long term (current) use of hormonal contraceptives; Z91.89 Other specified personal risk factors, not elsewhere classified

== ENCOUNTER → 2022-03-02 | Outpatient (CLI) | payer OTHER ==
[~2022-03-02] MED LIST changes: +CALC0.004
[2022-03-02 11:57] LABS: BASO # 0.1 10^3/uL (0.0-0.2); BASO % 0.9 % (0.0-1.0); EOS # 0.2 10^3/uL (0.0-0.5); EOS % 2.6 % (0.0-3.0); HEMATOCRIT 44.4 % (36.0-47.0); HEMOGLOBIN 14.7 g/dl (12.0-15.5); LYMPH # 2.2 10^3/uL (1.5-5.0); LYMPH % 25.7 % (24.0-44.0); MEAN CORPUSCULAR HEMOGLOBIN 29.9 pg (27.0-33.0); MEAN CORPUSCULAR HGB CONC 33.1 g/dl (32.0-36.5); MEAN CORPUSCULAR VOLUME 90.4 fl (80.0-96.0); MONO # 0.4 10^3/uL (0.0-0.8); MONO % 5.2 % (2.0-8.0); NEUTROPHILS # 5.5 10^3/uL (1.5-8.5); NEUTROPHILS % 65.2 % (36.0-66.0); PLATELET COUNT, AUTOMATED 402 10^3/uL (150-450); RED BLOOD COUNT 4.91 10^6/uL (4.00-5.40); WHITE BLOOD COUNT 8.4 10^3/uL (4.0-10.0)
[2022-03-02 12:22] LABS: ERYTHROCYTE SEDIMENTATION RATE 23 mm/hr (0-30)
[2022-03-02 12:28] LABS: ALBUMIN 3.6 GM/DL (3.2-5.2); ALT/SGPT 54 U/L (12-78); BILIRUBIN,TOTAL 0.3 MG/DL (0.2-1.0); BLOOD UREA NITROGEN 12 MG/DL (7-18); CALCIUM LEVEL 9.1 MG/DL (8.5-10.1); CARBON DIOXIDE LEVEL 29 MEQ/L (21-32); CHLORIDE LEVEL 106 MEQ/L (98-107); CHOLESTEROL LEVEL 223 MG/DL (<200); CHOLESTEROL RISK RATIO 5.068 (<5); CREATININE FOR GFR 0.68 MG/DL (0.55-1.30); FREE T4 0.79 NG/DL (0.76-1.46); GLOMERULAR FILTRATION RATE > 60.0 (>51); GLUCOSE, FASTING 100 MG/DL (70-100); HDL CHOLESTEROL 44 MG/DL (>40); LDL CHOLESTEROL 144 MG/DL (<100); NON-HDL-C 179 MG/DL; POTASSIUM SERUM 4.3 MEQ/L (3.5-5.1); RHEUMATOID FACTOR QUANT < 10.0 IU/ML (<15.0); SODIUM LEVEL 139 MEQ/L (136-145); TRIGLYCERIDES LEVEL 175 MG/DL (<150)
[2022-03-02 12:32] LABS: TOTAL 25(OH) VITAMIN D 26.6 NG/ML (30.0-100.0)
[2022-03-03 13:09] LABS: ANTINUCLEAR ANTIBODIES DIRECT Negative (Negative); SJOGREN'S ANTI SS-A <0.2 AI (0.0-0.9); SJOGREN'S ANTI SS-B <0.2 AI (0.0-0.9)
== END ==
LOC: M LAB 11:14
PROVIDERS: ATTEND Nurse Practitioner Family
DX: I10 Essential (primary) hypertension (principal)

== ENCOUNTER → 2022-04-06 | Outpatient (CLI) | payer OTHER | LOC: M WHC 09:17 | PROVIDERS: ATTEND Nurse Practitioner Family | DX: Z12.31 Encounter for screening mammogram for malignant neoplasm of breast (principal) ==

== ENCOUNTER → 2022-07-02 | Outpatient (CLI) | payer OTHER | LOC: M PLAIMG 09:55 | PROVIDERS: ATTEND Nurse Practitioner Adult Health | DX: R06.02 Shortness of breath (principal) ==

== ENCOUNTER → 2022-08-26 | Outpatient (CLI) | payer OTHER ==
[2022-08-26 17:31] LABS: ALBUMIN 3.3 GM/DL (3.2-5.2); ALT/SGPT 109 U/L (12-78); BILIRUBIN,TOTAL 0.3 MG/DL (0.2-1.0); BLOOD UREA NITROGEN 14 MG/DL (7-18); CALCIUM LEVEL 8.5 MG/DL (8.5-10.1); CARBON DIOXIDE LEVEL 29 MEQ/L (21-32); CHLORIDE LEVEL 104 MEQ/L (98-107); CHOLESTEROL LEVEL 233 MG/DL (<200); CHOLESTEROL RISK RATIO 4.755 (<5); CREATININE FOR GFR 0.62 MG/DL (0.55-1.30); FREE T4 0.88 NG/DL (0.76-1.46); GLOMERULAR FILTRATION RATE > 60.0 (>51); GLUCOSE, FASTING 141 MG/DL (70-100); HDL CHOLESTEROL 49 MG/DL (>40); LDL CHOLESTEROL 142 MG/DL (<100); NON-HDL-C 184 MG/DL; SODIUM LEVEL 139 MEQ/L (136-145); TOTAL PROTEIN 6.7 GM/DL (6.4-8.2); TRIGLYCERIDES LEVEL 211 MG/DL (<150)
[2022-08-26 17:40] LABS: HEMOGLOBIN A1c 8.1 %
== END ==
LOC: M WUC 11:18
PROVIDERS: ATTEND Nurse Practitioner Family
DX: E78.2 Mixed hyperlipidemia (principal); R63.5 Abnormal weight gain

== ENCOUNTER → 2022-08-31 | Outpatient (CLI) | payer OTHER | LOC: M SLEEP 20:00 | PROVIDERS: ATTEND Nurse Practitioner Adult Health | DX: G47.30 Sleep apnea, unspecified (principal) ==

== ENCOUNTER → 2022-11-22 | Outpatient (CLI) | payer OTHER ==
[2022-11-22 18:07] LABS: BASO # 0.1 10^3/uL (0.0-0.2); BASO % 0.9 % (0.0-1.0); EOS # 0.3 10^3/uL (0.0-0.5); EOS % 2.6 % (0.0-3.0); HEMATOCRIT 48.2 % (36.0-47.0); HEMOGLOBIN 15.3 g/dl (12.0-15.5); LYMPH # 2.8 10^3/uL (1.5-5.0); LYMPH % 26.9 % (24.0-44.0); MEAN CORPUSCULAR HEMOGLOBIN 29.8 pg (27.0-33.0); MEAN CORPUSCULAR HGB CONC 31.7 g/dl (32.0-36.5); MEAN CORPUSCULAR VOLUME 93.8 fl (80.0-96.0); MONO # 0.8 10^3/uL (0.0-0.8); MONO % 7.5 % (2.0-8.0); NEUTROPHILS # 6.5 10^3/uL (1.5-8.5); NEUTROPHILS % 61.8 % (36.0-66.0); PLATELET COUNT, AUTOMATED 437 10^3/uL (150-450); RED BLOOD COUNT 5.14 10^6/uL (4.00-5.40); WHITE BLOOD COUNT 10.5 10^3/uL (4.0-10.0)
[2022-11-22 18:23] LABS: URIC ACID 7.4 MG/DL (3.1-7.8)
[2022-11-22 18:24] LABS: C REACTIVE PROTEIN QUANTITATIV < 0.40 MG/DL (<1.0)
[2022-11-22 18:26] LABS: RHEUMATOID FACTOR QUANT 5.9 IU/ML (<14)
[2022-11-22 18:32] LABS: ERYTHROCYTE SEDIMENTATION RATE 40 mm/hr (0-30)
[2022-11-24 15:08] LABS: ANTINUCLEAR ANTIBODIES DIRECT Negative (Negative)
== END ==
LOC: M PLALAB 14:54
PROVIDERS: ATTEND Physician Assistant Surgical
DX: M19.011 Primary osteoarthritis, right shoulder (principal)

== ENCOUNTER → 2022-12-02 | Outpatient (CLI) | payer OTHER ==
[2022-12-02 11:08] LABS: ALBUMIN 3.8 G/DL (3.2-5.2); BILIRUBIN,DIRECT 0.2 MG/DL (<0.4); BILIRUBIN,TOTAL 0.5 MG/DL (0.3-1.2); TOTAL PROTEIN 6.7 G/DL (5.7-8.2)
== END ==
LOC: M PLALAB 08:24
PROVIDERS: ATTEND Nurse Practitioner Family
DX: L40.0 Psoriasis vulgaris (principal); Z51.81 Encounter for therapeutic drug level monitoring; Z79.899 Other long term (current) drug therapy

== ENCOUNTER → 2022-12-10 | Outpatient (CLI) | payer OTHER | LOC: M WHC 08:17 | PROVIDERS: ATTEND Nurse Practitioner Family | DX: L40.0 Psoriasis vulgaris (principal); Z51.81 Encounter for therapeutic drug level monitoring; Z79.899 Other long term (current) drug therapy ==

== ENCOUNTER → 2022-12-13 | Outpatient (CLI) | payer OTHER | LOC: M SLEEP 20:00 | PROVIDERS: ATTEND Nurse Practitioner Adult Health | DX: G47.33 Obstructive sleep apnea (adult) (pediatric) (principal) ==

== ENCOUNTER → 2023-01-04 | Outpatient (CLI) | payer OTHER ==
[2023-01-04 14:55] LABS: HEMOGLOBIN A1c 6.5 % (4.0-6.0)
[2023-01-04 15:07] LABS: ALBUMIN 3.6 G/DL (3.2-5.2); ALKALINE PHOSPHATASE 70 U/L (46-116); ALT/SGPT 61 U/L (7.0-40); AST/SGOT 29 U/L (<34); BILIRUBIN,TOTAL 0.5 MG/DL (0.3-1.2); BLOOD UREA NITROGEN 17 MG/DL (9-23); CALCIUM LEVEL 9.3 MG/DL (8.5-10.1); CARBON DIOXIDE LEVEL 32 MMOL/L (20-31); CHLORIDE LEVEL 105 MMOL/L (98-107); CREATININE FOR GFR 0.63 MG/DL (0.55-1.30); GLOMERULAR FILTRATION RATE > 60.0 (>51); GLUCOSE, FASTING 103 MG/DL (60-100); POTASSIUM SERUM 5.1 MMOL/L (3.5-5.1); SODIUM LEVEL 140 MMOL/L (136-145); TOTAL PROTEIN 6.5 G/DL (5.7-8.2)
== END ==
LOC: M PLALAB 10:23
PROVIDERS: ATTEND Nurse Practitioner Family
DX: E11.9 Type 2 diabetes mellitus without complications (principal)

== ENCOUNTER → 2023-03-29 | Outpatient (CLI) | payer OTHER ==
[2023-03-29 15:02] LABS: HEMOGLOBIN A1c 6.6 % (4.0-6.0)
[2023-03-29 15:11] LABS: ALBUMIN 3.5 G/DL (3.2-5.2); ALKALINE PHOSPHATASE 64 U/L (46-116); ALT/SGPT 112 U/L (7.0-40); AST/SGOT 41 U/L (<34); BILIRUBIN,TOTAL 0.3 MG/DL (0.3-1.2); BLOOD UREA NITROGEN 17 MG/DL (9-23); CALCIUM LEVEL 8.7 MG/DL (8.5-10.1); CARBON DIOXIDE LEVEL 30 MMOL/L (20-31); CHLORIDE LEVEL 105 MMOL/L (98-107); CREATININE FOR GFR 0.63 MG/DL (0.55-1.30); GLOMERULAR FILTRATION RATE > 60.0 (>51); GLUCOSE, FASTING 111 MG/DL (60-100); POTASSIUM SERUM 4.5 MMOL/L (3.5-5.1); SODIUM LEVEL 140 MMOL/L (136-145); TOTAL PROTEIN 6.4 G/DL (5.7-8.2)
[2023-03-29 15:58] LABS: CREATININE, URINE 148.1 MG/DL
== END ==
LOC: M PLALAB 11:32
PROVIDERS: ATTEND Nurse Practitioner Family
DX: E11.9 Type 2 diabetes mellitus without complications (principal)

== ENCOUNTER → 2023-04-08 | Outpatient (CLI) | payer OTHER | LOC: M WHC 09:55 | PROVIDERS: ATTEND Nurse Practitioner Family | DX: Z12.31 Encounter for screening mammogram for malignant neoplasm of breast (principal) ==